=== PATIENT | female | born 1985 | race Caucasian/White ===

== ENCOUNTER 2019-03-06 07:02 | Day surgery (SDC) | payer OTHER ==
[2019-02-25 10:40] LABS: HEMATOCRIT 32.2 % (36.0-47.0); HEMOGLOBIN 10.6 g/dL (12.0-15.5); MEAN CORPUSCULAR HEMOGLOBIN 25.8 pg (27.0-33.4); MEAN CORPUSCULAR HGB CONC 32.8 g/dL (32.0-36.0); MEAN CORPUSCULAR VOLUME 79 fl (80-97); PLATELET COUNT 271 10^3/uL (150-450); RED BLOOD COUNT 4.09 10^6/uL (3.72-5.28); WHITE BLOOD COUNT 14.5 10^3/uL (4.0-10.5)
[2019-02-25 10:46] LABS: APPEARANCE,URINE CLEAR; BILIRUBIN,URINE NEGATIVE (NEGATIVE); COLOR,URINE YELLOW; GLUCOSE, URINE NEGATIVE (NEGATIVE); KETONES,URINE NEGATIVE (NEGATIVE); LEUKOCYTE ESTERASE,URINE NEGATIVE (NEGATIVE); NITRITE,URINE NEGATIVE (NEGATIVE); PROTEIN,URINE NEGATIVE (NEGATIVE); URINE SPECIFIC GRAVITY 1.011; UROBILINOGEN,URINE NEGATIVE mg/dL (<2.0)
[2019-02-25 11:08] LABS: ALBUMIN 3.9 g/dL (3.5-5.0); ALKALINE PHOSPHATASE 67 U/L (38-126); ANION GAP 8 (5-19); ASPARTATE AMINO TRANSFERASE 29 U/L (14-36); BILIRUBIN,DIRECT 0.2 mg/dL (0.0-0.4); BILIRUBIN,TOTAL 0.5 mg/dL (0.2-1.3); BLOOD UREA NITROGEN 11 mg/dL (7-20); CALCIUM 9.1 mg/dL (8.4-10.2); CARBON DIOXIDE 29 mmol/L (22-30); CHLORIDE 102 mmol/L (98-107); GLUCOSE 98 mg/dL (75-110); POTASSIUM 3.7 mmol/L (3.6-5.0); TOTAL PROTEIN 6.9 g/dL (6.3-8.2)
[~2019-03-06 07:02] MED LIST: GENTAMICIN SULFATE 80 MG in DEXTROSE 5%-WATER 100 ML IV PRN; LACTATED RINGERS 1000 ML IV PRN; LIDOCAINE 0.5% INJ-PF (5 MG/ML) 50 ML SDV SUBCUT PRN
[2019-03-06] MEDS ORDERED: BUPIVACAINE HCL 0.25 % INJ/PF (2.5 MG/1 ML) 30 ML VIAL ONE ×2 (07:24→08:51)
[2019-03-06] MEDS ORDERED: ALBUTEROL SULFATE 0.083% NEB 2.5 MG/3 ML AMPUL NEB ONE (08:12)
[2019-03-06] MEDS ORDERED: ONDANSETRON HCL INJ/PF 4 MG/2 ML SDV ONE (08:40)
[2019-03-06] MEDS ORDERED: MIDAZOLAM 2 MG/2 ML INJ ONE ×2 (08:40→09:30)
[2019-03-06] MEDS ORDERED: FENTANYL CITRATE INJ/PF 100 MCG/2 ML AMPUL ONE ×2 (08:40→11:14)
[2019-03-06] MEDS ORDERED: MORPHINE SULFATE 10 MG/ML INJ ONE (08:40)
[2019-03-06] MEDS ORDERED: DEXAMETHASONE SOD PHOSPHATE INJ 4 MG/1 ML VIAL ONE ×2 (08:40→09:30)
[2019-03-06] MEDS ORDERED: PROPOFOL INJ 200 MG/20 ML VIAL IV ONE (08:41)
[2019-03-06] MEDS ORDERED: METHYLENE BLUE 50 MG/10 ML AMPULE ONE (08:51)
[2019-03-06] MEDS ORDERED: SCOPOLAMINE HYDROBROMIDE 1.5 MG PATCH.TD72 ONE (09:30)
[2019-03-06] MEDS ORDERED: DIPHENHYDRAMINE HCL 50 MG/ML VIAL ONE (09:30)
[2019-03-06] MEDS ORDERED: FAMOTIDINE INJ/PF 20 MG/2 ML SDV IV ONE (09:30)
[2019-03-06] MEDS ORDERED: METOCLOPRAMIDE HCL INJ/PF 10 MG/2 ML SDV ONE (09:30)
[2019-03-06] MEDS ORDERED: ACETAMINOPHEN 1,000 MG/100 ML RTUPB IV ONE (10:13)
[2019-03-06] MEDS ORDERED: MORPHINE SULFATE 10 MG/ML INJ IV PRN (10:28)
[2019-03-06] MEDS ORDERED: MEPERIDINE HCL/PF INJ 25 MG/1 ML DISP.SYRIN IV PRN (10:28)
[2019-03-06] MEDS ORDERED: FENTANYL CITRATE INJ/PF 100 MCG/2 ML AMPUL IV PRN ×3 (10:28)
[2019-03-06] MEDS ORDERED: DIPHENHYDRAMINE HCL 50 MG/ML VIAL IV PRN (10:28)
[2019-03-06] MEDS ORDERED: PROMETHAZINE HCL INJ 25 MG/1 ML VIAL IV PRN ×3 (10:28→11:31)
[2019-03-06] MEDS ORDERED: OXYCODONE-ACETAMINOPHEN 5-325 MG TABLET PO PRN ×2 (11:30)
[2019-03-06] MEDS ORDERED: OXYCODONE-ACETAMINOPHEN 5-325 MG TABLET ONE (12:01)
[2019-03-06] MEDS ORDERED: SUCCINYLCHOLINE CHLORIDE INJ 200 MG/10 ML VIAL ONE (12:32)
[2019-03-06 13:37] VITALS: BP 111/78
--- NOTE | 2019-03-06 15:39 | Operative Report ---
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 Patient was then inducted under general anesthesia. Patient was then repositioned in a dorsal lithotomy position. Following a timeout the patient had her bladder drained of sterile urine. A pelvic under anesthesia was then performed. A weighted speculum was then inserted into the vagina and the cervix was grasped on its anterior lip with a single-tooth tenaculum and an Allis clamp. Uterus was sounded to 8 cm. Uterus was dilated with Hegar dilators and then curetted with a small sharp curette. A tenaculum probe was then placed on the anterior lip of the cervix. Attention was then turned toward the abdominal wall. A varies needle was entered inserted through the umbilicus and carried through the various layers until the abdominal cavity was entered. A drop of saline was placed on the varies needle the abdomen was picked up and the saline easily egressed into the abdominal cavity. The varies needle was then hooked up to the CO2. Opening pressure was noted to be 3 cm of water. Approximately 3 L of CO2 were injected until a pressure of 15 cm of water was reached. Having established a pneumoperitoneum the varies needle was removed and a small incision was made infraumbilically. Through this incision a trocar and sleeve were inserted. The trocar was removed and a laparoscope was inserted through the sleeve. A second incision was then made suprapubically. Through this incision a trocar was inserted until the peritoneal cavity was entered. The trocar was then removed and through this sleeve a probe was inserted. The contents of the pelvis and abdominal cavity was then visualized and video recorded with the above findings. Having terminated the procedure the suprapubic sleeve was removed. There was no evidence of active bleeding. The laparoscope was removed. The CO2 was allowed to escape. The subumbilical sleeve was then removed. The defect in the subumbilical fascia were repaired with interrupted using 0 Dexon. The defects in the suprapubic fascia were repaired with 0 Dexon. The skin edges and the subumbilical incision were then closed with a subcuticular using 4-0 Prolene. The skin edges and the suprapubic incision were then closed using interrupted 4-0 Prolene. Attention was then turned down to the vagina and the tenaculum probe was removed. This terminated the procedure the patient was placed back in a supine position and anesthesia was discontinued. Patient was transferred to the recovery room in satisfactory condition.
== END 2019-03-06 13:05 | disposition home or self-care (01) ==
LOC: OROUT 07:02
PROVIDERS: ATTEND Obstetrics & Gynecology
DX: C54.1 Malignant neoplasm of endometrium (principal); R10.2 Pelvic and perineal pain; N93.8 Other specified abnormal uterine and vaginal bleeding; K66.0 Peritoneal adhesions (postprocedural) (postinfection); J45.909 Unspecified asthma, uncomplicated
CPT/HCPCS: 86900; 86901; 36415 ×2; 87205; 87070; 86850; 84703; 85027; 87075; 80053; 81001; 88162; 88342 ×2; 88341 ×2; 88305 ×2; 00790; J2250; J1100; J1200; J3010; J1580; J2765; J0330; J2405; J7060; J2704; S0028; J0131; 790; J2270; Q9968

== ENCOUNTER 2019-03-16 11:51 | Inpatient (IN) | payer OTHER ==
[2019-03-16] MEDS ORDERED: HYDROMORPHONE HCL INJ/PF 2 MG/ML AMPULE IV PRN (12:43)
[2019-03-16 12:59] LABS: HEMATOCRIT 31.9 % (36.0-47.0); HEMOGLOBIN 10.4 g/dL (12.0-15.5); MEAN CORPUSCULAR HEMOGLOBIN 25.2 pg (27.0-33.4); MEAN CORPUSCULAR HGB CONC 32.6 g/dL (32.0-36.0); MEAN CORPUSCULAR VOLUME 78 fl (80-97); PLATELET COUNT 417 10^3/uL (150-450); RED BLOOD COUNT 4.12 10^6/uL (3.72-5.28); RED CELL DISTRIBUTION WIDTH 16.9 % (11.5-14.0); WHITE BLOOD COUNT 11.6 10^3/uL (4.0-10.5)
[2019-03-16] MEDS: PROMETHAZINE HCL INJ 25 MG/1 ML VIAL IV PRN (13:15)
[2019-03-16] MEDS: RINGERS SOLUTION,LACTATED 1,000 ML IV PRN (13:16)
[2019-03-16 13:18] LABS: ALBUMIN 3.9 g/dL (3.5-5.0); ALKALINE PHOSPHATASE 78 U/L (38-126); ANION GAP 12 (5-19); ASPARTATE AMINO TRANSFERASE 24 U/L (14-36); BILIRUBIN,DIRECT 0.2 mg/dL (0.0-0.4); BILIRUBIN,TOTAL 0.5 mg/dL (0.2-1.3); BLOOD UREA NITROGEN 10 mg/dL (7-20); CALCIUM 9.6 mg/dL (8.4-10.2); CARBON DIOXIDE 25 mmol/L (22-30); CHLORIDE 101 mmol/L (98-107); GLUCOSE 116 mg/dL (75-110); POTASSIUM 4.1 mmol/L (3.6-5.0); TOTAL PROTEIN 7.4 g/dL (6.3-8.2)
[2019-03-16] MEDS ORDERED: SCOPOLAMINE HYDROBROMIDE 1.5 MG PATCH.TD72 TD SCH (13:30)
[2019-03-16] MEDS ORDERED: HYDROMORPHONE HCL INJ/PF 2 MG/ML AMPULE IV ONE (14:30)
[2019-03-16 15:09] LABS: APPEARANCE,URINE CLEAR; BILIRUBIN,URINE NEGATIVE (NEGATIVE); COLOR,URINE STRAW; GLUCOSE, URINE NEGATIVE (NEGATIVE); KETONES,URINE NEGATIVE (NEGATIVE); LEUKOCYTE ESTERASE,URINE LARGE (NEGATIVE); NITRITE,URINE NEGATIVE (NEGATIVE); PROTEIN,URINE NEGATIVE (NEGATIVE); URINE SPECIFIC GRAVITY 1.005; UROBILINOGEN,URINE NEGATIVE mg/dL (<2.0)
[2019-03-16] MEDS: ALPRAZOLAM 0.5 MG TABLET PO PRN (16:33)
[2019-03-16] MEDS ORDERED: POLYETHYLENE GLYCOL 3350 POWDER 17 GM/1 PACKET PO ONE (17:30)
[2019-03-16] MEDS ORDERED: BISACODYL 5 MG TABEC PO ONE (17:32)
[2019-03-16] MEDS: CLONIDINE HCL 0.1 MG TABLET PO SCH ×2 (18:36→22:19)
--- NOTE | 2019-03-16 18:43 | RADIOLOGY REPORT (SQ) ---
EXAM DESCRIPTION: CT ABD/PELVIS WITH IV ORAL; CT CHEST WITH COMPLETED DATE/TIME: 03/16/2019 5:27 pm REASON FOR STUDY: PELVIC/ABDOMINAL PAIN COMPARISON: None. CONTRAST TYPE AND DOSE: contrast/concentration: Isovue 350.00 mg/ml; Total Contrast Delivered: 69.0 ml; Total Saline Delivered: 16.6 ml RENAL FUNCTION: None required. The patient is less than 50 years old. TECHNIQUE: CT scan of the chest performed using helical scanning technique with dynamic intravenous contrast injection. Images reviewed with lung, soft tissue and bone windows. Reconstructed coronal a nd sagittal MPR images reviewed. All images stored on PACS. CT scan of the abdomen and pelvis performed with intravenous and with oral contrastusing helical scan jasmyne technique with dynamic intravenous contrast injection. Images reviewed with lung, soft tissue a nd bone windows. Reconstructed coronal and sagittal MPR images reviewed. Delayed images for evaluat ion of the urinary system also acquired and evaluated. All images stored on PACS. All CT scanners at this facility use dose modulation, iterative reconstruction, and/or weight based d osing when appropriate to reduce radiation dose to as low as reasonably achievable (ALARA). [facility]: Dose Right [facility]: CareDose [facility]: Dose Right [facility]: Teradose 4D [facility]: Smart Spiration RADIATION DOSE: CT Rad equipment meets quality standard of care and radiation dose reduction techniq ues were employed. CTDIvol: 5.7 - 7.7 mGy. DLP: 873 mGy-cm. . LIMITATIONS: None. FINDINGS: CHEST: LUNGS AND PLEURA: No opacities, nodules, masses. No pneumothorax. No effusions. HILAR AND MEDIASTINAL STRUCTURES: No identified masses or abnormal nodes. HEART AND VASCULAR STRUCTURES: No aneurysm or dissection. No central pulmonary emboli. No pericardi al effusion. HARDWARE: None. THYROID AND OTHER SOFT TISSUES: No masses. No adenopathy. BONES: No significant finding. OTHER: No other significant finding. ABDOMEN AND PELVIS: LIVER: Normal size. No masses. No dilated ducts. SPLEEN: Normal size. No focal lesions. PANCREAS: No masses. No significant calcifications. No adjacent inflammation or peripancreatic fluid collections. Pancreatic duct not dilated. GALLBLADDER: No identified stones by CT criteria. No inflammatory changes to suggest cholecystitis. ADRENAL GLANDS: No significant masses or asymmetry. RIGHT KIDNEY AND URETER: No solid masses. No significant calcification. No hydronephrosis or hydroure ter. LEFT KIDNEY AND URETER: No solid masses. Small peripheral nonobstructive calcification. No hydroneph rosis or hydroureter. AORTA AND VESSELS: No aneurysm. No dissection. Renal arteries, SMA, celiac without stenosis. RETROPERITONEUM: No retroperitoneal adenopathy, hemorrhage or masses. BOWEL AND PERITONEAL CAVITY: No masses or inflammatory changes. No free fluid or peritoneal masses. APPENDIX: Not visualized. ABDOMINAL WALL: No masses. No hernias. PELVIS: No mass or free fluid. Normal bladder. BONES: No significant or acute findings. OTHER: No other significant finding. IMPRESSION: NORMAL CT OF THE CHEST WITH IV CONTRAST. NORMAL CT OF THE ABDOMEN AND PELVIS WITH ORAL AND INTRAVENOUS CONTRAST. TECHNICAL DOCUMENTATION: JOB ID: [id number] Quality ID # [id number]: Final reports with documentation of one or more dose reduction techniques (e.g., Au tomated exposure control, adjustment of the mA and/or kV according to patient size, use of iterative reconstruction technique) 2010 [employer]- All Rights Reserved Reading location - IP/workstation name: [email or web address]
[2019-03-16] MEDS: HYDROMORPHONE HCL 2 MG TABLET PO PRN (19:28)
[2019-03-16] MEDS: HYDROMORPHONE HCL INJ/PF 2 MG/ML AMPULE IV PRN (22:11)
[2019-03-16] MEDS: ZOLPIDEM TARTRATE 5 MG TABLET PO PRN (22:12)
[2019-03-17] MEDS: HYDROMORPHONE HCL 2 MG TABLET PO PRN ×2 (01:49→06:09)
[2019-03-17] MEDS: RINGERS SOLUTION,LACTATED 1,000 ML IV PRN ×2 (01:51→12:57)
[2019-03-17] MEDS: ALPRAZOLAM 0.5 MG TABLET PO PRN ×3 (01:55→21:40)
[2019-03-17] MEDS: CLONIDINE HCL 0.1 MG TABLET PO SCH ×6 (02:01→21:41)
[2019-03-17] MEDS: HYDROMORPHONE HCL INJ/PF 2 MG/ML AMPULE IV PRN ×6 (04:46→23:30)
[2019-03-17] MEDS ORDERED: GLUCAGON,HUMAN RECOMB 1 MG INJ SUBCUT PRN (08:22)
[2019-03-17] MEDS ORDERED: DEXTROSE 50%-WATER 25 GM/50 ML DISP.SYRIN IV PRN ×2 (08:22)
[2019-03-17] MEDS ORDERED: DEXTROSE 40% GEL 15 GM TUBE PO PRN ×2 (08:22)
--- NOTE | 2019-03-17 08:22 | PDOC CONSULTATION ---
Consultation Consult Date: 03/17/19 Provider Consulted: JUAN SHELTON Consult reason:: rectal bleeding, possible rectal mass History of Present Illness Admission Date/PCP: 03/16/19 11:51 GO DENTON MD Patient complains of: Rectal bleeding, rectal pain, tenesmus History of Present Illness: ABRAHAM BUSTOS is a 34 year old female with a several week history of severe pelvic/rectal pain. Patient reports a sensation of tenesmus. She was seen by me several months ago for an anal fissure. This was successfully treated, and the patient declined colonoscopy at that time. Now the patient presents with continued pelvic pain and tenesmus. Her bowel movements are small and mostly liquid. The patient underwent D&C with biopsy, showing possible adenocarcinoma. I have been consulted to provide the patient with a colonoscopy. Her pain is 10 out of 10, throbbing, and constant. Currently, she denies chest pain, shortness of breath, fevers, chills, dizziness, orthostasis, fatigue, malaise, blurry vision, headache. Past Medical History Cardiac Medical History: Denies: Coronary Artery Disease, Myocardial Infarction, Hypertension Pulmonary Medical History: Reports: Asthma - MILD Denies: Bronchitis, Chronic Obstructive Pulmonary Disease (COPD), Pneumonia Neurological Medical History: Reports: Migraine Denies: Seizures Musculoskeltal Medical History: Denies: Arthritis Psychiatric Medical History: Reports: Depression Hematology: Reports: Anemia Social History Smoking Status: Former Smoker Number of Years Smokin Frequency of Alcohol Use: None Hx Recreational Drug Use: No Drugs: None Hx Prescription Drug Abuse: No Family History Family History: Reviewed & Not Pertinent Parental Family History Reviewed: Yes Children Family History Reviewed: Yes Sibling(s) Family History Reviewed.: Yes Medication/Allergy Home Medications: Alprazolam [Xanax 0.5 mg Tablet] 0.25 mg PO BIDP PRN 03/16/19 Hydromorphone HCl [Dilaudid] 4 mg PO Q4HP PRN 03/16/19 Oxycodone HCl/Acetaminophen [Percocet 5-325 mg Tablet] 1 tab PO Q4HP PRN 03/16/19 Scopolamine 1 each TD Q72H 03/16/19 Zolpidem Tartrate [Ambien] 10 mg PO QHS 03/16/19 Allergies/Adverse Reactions: cefaclor [From [facility]] Allergy (Verified 03/06/19 08:23) Review of Systems Constitutional: ABSENT: anorexia, chills, fatigue, fever(s), headache(s) Eyes: ABSENT: visual disturbances Ears: ABSENT: hearing changes Nose, Mouth, and Throat: ABSENT: sore throat Cardiovascular: ABSENT: chest pain Respiratory: ABSENT: cough, dyspnea Gastrointestinal: PRESENT: bloating, other - Pelvic pain and tenesmus Genitourinary: ABSENT: dysuria Musculoskeletal: PRESENT: back pain Integumentary: ABSENT: pruritus, rash Neurological: ABSENT: confusion, convulsions, dizziness, weakness Psychiatric: ABSENT: anxiety, depression Endocrine: ABSENT: cold intolerance, heat intolerance Hematologic/Lymphatic: ABSENT: easy bleeding, easy bruising Physical Exam Vital Signs: Temp Pulse Resp BP Pulse Ox 97.2 F 71 17 123/69 100 03/16/19 16:42 03/16/19 16:42 03/16/19 16:42 03/16/19 16:42 03/16/19 16:42 Intake & Output 03/15/19 03/16/19 03/17/19 06:59 06:59 06:59 Weight 60.4 kg General appearance: PRESENT: cooperative. ABSENT: disheveled Head exam: PRESENT: atraumatic, normocephalic Eye exam: PRESENT: EOMI, PERRLA. ABSENT: scleral icterus Mouth exam: PRESENT: moist, neck supple Teeth exam: ABSENT: poor dentation Neck exam: ABSENT: meningismus, tenderness, thyromegaly, tracheal deviation Respiratory exam: PRESENT: clear to auscultation eva, unlabored. ABSENT: chest wall tenderness, tachypnea, wheezes Cardiovascular exam: PRESENT: RRR Pulses: PRESENT: normal radial pulses Vascular exam: PRESENT: normal capillary refill. ABSENT: pallor GI/Abdominal exam: PRESENT: soft. ABSENT: distended, firm, tenderness Rectal exam: PRESENT: deferred - due to pain Extremities exam: ABSENT: clubbing Musculoskeletal exam: ABSENT: deformity Neurological exam: PRESENT: alert, awake, CN II-XII grossly intact. ABSENT: motor sensory deficit Psychiatric exam: PRESENT: anxious. ABSENT: agitated Focused psych exam: ABSENT: delusional Skin exam: ABSENT: cyanosis, erythema, jaundice Results Laboratory Results: 03/16/19 12:30 03/16/19 12:30 03/16/19 03/16/19 03/16/19 12:30 12:30 14:30 WBC 11.6 H RBC 4.12 Hgb 10.4 L Hct 31.9 L MCV 78 L MCH 25.2 L MCHC 32.6 RDW 16.9 H Plt Count 417 Sodium 137.7 Potassium 4.1 Chloride 101 Carbon Dioxide 25 Anion Gap 12 BUN 10 Creatinine 0.63 Est GFR ( Amer) > 60 Glucose 116 H Calcium 9.6 Total Bilirubin 0.5 AST 24 Alkaline Phosphatase 78 Total Protein 7.4 Albumin 3.9 Urine Color STRAW Urine Appearance CLEAR Urine pH 7.0 Ur Specific [place] 1.005 Urine Protein NEGATIVE Urine Glucose (UA) NEGATIVE Urine Ketones NEGATIVE Urine Blood MODERATE H Urine Nitrite NEGATIVE Ur Leukocyte Esterase LARGE H Urine WBC (Auto) 113 Urine RBC (Auto) 1 Impressions: Abdomen/Pelvis CT 03/16/19 00:00 IMPRESSION: NORMAL CT OF THE CHEST WITH IV CONTRAST. NORMAL CT OF THE ABDOMEN AND PELVIS WITH ORAL AND INTRAVENOUS CONTRAST. Chest CT 03/16/19 00:00 IMPRESSION: NORMAL CT OF THE CHEST WITH IV CONTRAST. NORMAL CT OF THE ABDOMEN AND PELVIS WITH ORAL AND INTRAVENOUS CONTRAST. Assessment & Plan - Diagnosis (1) Rectal bleeding Is this a current diagnosis for this admission?: Yes (2) Rectal pain Is this a current diagnosis for this admission?: Yes - Plan Summary Plan Summary: This is a 34-year-old female with rectal bleeding, and a vaginal biopsy consistent with adenocarcinoma. The patient will require a colonoscopy to rule out a rectal tumor. I discussed this with the patient and her family at length. They are in agreement with the treatment plan. Risks/benefits discussed, informed consent obtained, and all questions answered.
[2019-03-17 09:56] LABS: HEMOGLOBIN 9.4 g/dL (12.0-15.5); MEAN CORPUSCULAR HEMOGLOBIN 25.2 pg (27.0-33.4); MEAN CORPUSCULAR HGB CONC 32.4 g/dL (32.0-36.0); MEAN CORPUSCULAR VOLUME 78 fl (80-97); PLATELET COUNT 323 10^3/uL (150-450); RED BLOOD COUNT 3.73 10^6/uL (3.72-5.28); RED CELL DISTRIBUTION WIDTH 16.7 % (11.5-14.0); WHITE BLOOD COUNT 12.3 10^3/uL (4.0-10.5)
[2019-03-17] MEDS: ACETAMINOPHEN 325 MG TABLET PO PRN ×2 (10:02→21:40)
[2019-03-17] MEDS: HYDROMORPHONE HCL 2 MG TABLET PO SCH ×4 (10:04→21:40)
[2019-03-17] MEDS: PROMETHAZINE HCL INJ 25 MG/1 ML VIAL IV PRN (10:07)
--- NOTE | 2019-03-17 10:28 | PDOC PROGRESS REPORT ---
Subjective Progress Note for:: 03/17/19 Subjective:: 34-year-old female with complaints of rectal bleeding and tenesmus. She is due for a colonoscopy today. She has been drinking her bowel prep, without significant results. Patient reports several loose watery bowel movements, without significant stool present. She reports reflux, intermittent nausea. She denies headache, vomiting, chest pain, fevers, chills, blurry vision, orthostasis, fatigue. She does report vaginal as well as rectal bleeding. Reason For Visit: S/P LAPAROSCOPY/PELVIC ABDOMINAL PAIN Physical Exam Vital Signs: Temp Pulse Resp BP Pulse Ox 98.1 F 100 14 143/87 H 100 03/17/19 07:56 03/17/19 07:56 03/17/19 07:56 03/17/19 07:56 03/17/19 07:56 Intake & Output 03/16/19 03/17/19 03/18/19 06:59 06:59 06:59 Intake Total 1800 Balance 1800 Weight 60.4 kg General appearance: PRESENT: cooperative. ABSENT: disheveled Head exam: PRESENT: atraumatic, normocephalic Eye exam: PRESENT: EOMI, PERRLA. ABSENT: scleral icterus Mouth exam: PRESENT: moist, neck supple Teeth exam: ABSENT: poor dentation Neck exam: ABSENT: meningismus, tenderness, thyromegaly, tracheal deviation Respiratory exam: PRESENT: clear to auscultation eva, unlabored. ABSENT: accessory muscle use, chest wall tenderness, tachypnea, wheezes Cardiovascular exam: PRESENT: RRR Pulses: PRESENT: normal radial pulses Vascular exam: PRESENT: normal capillary refill GI/Abdominal exam: PRESENT: distended - mild, soft. ABSENT: rigid, tenderness Rectal exam: PRESENT: deferred - due to pain Extremities exam: ABSENT: clubbing Musculoskeletal exam: ABSENT: deformity Neurological exam: PRESENT: alert, awake, oriented to person, oriented to place, oriented to time, oriented to situation, CN II-XII grossly intact. ABSENT: motor sensory deficit Psychiatric exam: PRESENT: anxious. ABSENT: agitated Focused psych exam: ABSENT: delusional Skin exam: ABSENT: cyanosis, erythema, jaundice Results Laboratory Results: 03/17/19 09:09 03/16/19 12:30 03/16/19 03/16/19 03/16/19 12:30 12:30 14:30 WBC 11.6 H RBC 4.12 Hgb 10.4 L Hct 31.9 L MCV 78 L MCH 25.2 L MCHC 32.6 RDW 16.9 H Plt Count 417 Sodium 137.7 Potassium 4.1 Chloride 101 Carbon Dioxide 25 Anion Gap 12 BUN 10 Creatinine 0.63 Est GFR ( Amer) > 60 Glucose 116 H Calcium 9.6 Total Bilirubin 0.5 AST 24 Alkaline Phosphatase 78 Total Protein 7.4 Albumin 3.9 Urine Color STRAW Urine Appearance CLEAR Urine pH 7.0 Ur Specific [place] 1.005 Urine Protein NEGATIVE Urine Glucose (UA) NEGATIVE Urine Ketones NEGATIVE Urine Blood MODERATE H Urine Nitrite NEGATIVE Ur Leukocyte Esterase LARGE H Urine WBC (Auto) 113 Urine RBC (Auto) 1 03/17/19 09:09 WBC 12.3 H RBC 3.73 Hgb 9.4 L Hct 29.0 L MCV 78 L MCH 25.2 L MCHC 32.4 RDW 16.7 H Plt Count 323 Sodium Potassium Chloride Carbon Dioxide Anion Gap BUN Creatinine Est GFR ( Amer) Glucose Calcium Total Bilirubin AST Alkaline Phosphatase Total Protein Albumin Urine Color Urine Appearance Urine pH Ur Specific [place] Urine Protein Urine Glucose (UA) Urine Ketones Urine Blood Urine Nitrite Ur Leukocyte Esterase Urine WBC (Auto) Urine RBC (Auto) 03/16/19 14:30 Clean Catch Midstream Urine Culture - Final 1,000 col/ml Impressions: Abdomen/Pelvis CT 03/16/19 00:00 IMPRESSION: NORMAL CT OF THE CHEST WITH IV CONTRAST. NORMAL CT OF THE ABDOMEN AND PELVIS WITH ORAL AND INTRAVENOUS CONTRAST. Chest CT 03/16/19 00:00 IMPRESSION: NORMAL CT OF THE CHEST WITH IV CONTRAST. NORMAL CT OF THE ABDOMEN AND PELVIS WITH ORAL AND INTRAVENOUS CONTRAST. Assessment & Plan - Diagnosis (1) Rectal bleeding Is this a current diagnosis for this admission?: Yes (2) Rectal pain Is this a current diagnosis for this admission?: Yes - Plan Summary Plan Summary: This is a 34-year-old female with rectal bleeding and tenesmus. She has a vaginal biopsy consistent with adenocarcinoma. Plan for colonoscopy today to rule out any rectal pathology. The patient has been drinking her bowel prep. Hopefully we will see some results from this in the near future. Plan colonoscopy today regardless of bowel prep results. The family was present at bedside. All questions were answered.
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
[2019-03-17 14:21] LABS: IRON(TIBC) 10.4 ug/dL (37-170)
[2019-03-17 14:23] LABS: ABSOLUTE RETICS # 0.058 10^6/uL (0.028-0.122); RETICULOCYTE COUNT (AUTO) 1.55 % (0.66-2.85)
[2019-03-17 14:54] LABS: CARCINOEMBRYONIC ANTIGEN 20.3 ng/mL (<3.0)
[2019-03-17] MEDS ORDERED: PROPOFOL INJ 200 MG/20 ML VIAL IV ONE (18:19)
[2019-03-17] MEDS ORDERED: MIDAZOLAM 2 MG/2 ML INJ ONE (18:19)
[2019-03-17] MEDS: FENTANYL CITRATE INJ/PF 100 MCG/2 ML AMPUL ONE ×2 (19:15→19:20)
[2019-03-17] MEDS: ZOLPIDEM TARTRATE 5 MG TABLET PO PRN (23:29)
[2019-03-18] MEDS: CLONIDINE HCL 0.1 MG TABLET PO SCH ×6 (03:25→21:13)
[2019-03-18] MEDS: HYDROMORPHONE HCL 2 MG TABLET PO SCH ×3 (03:25→21:13)
[2019-03-18] MEDS: RINGERS SOLUTION,LACTATED 1,000 ML IV PRN (04:47)
[2019-03-18] MEDS: HYDROMORPHONE HCL INJ/PF 2 MG/ML AMPULE IV PRN ×3 (04:48→18:29)
[2019-03-18] MEDS: ALPRAZOLAM 0.5 MG TABLET PO PRN (08:13)
--- NOTE | 2019-03-18 08:36 | PDOC PROGRESS REPORT ---
Subjective Progress Note for:: 03/18/19 Subjective:: discussed case with Dr. Siegel extensively, patient has tumor extending up from the dentate line about 6 to 8 cm. There is invasion of the vagina. Discussed case also with radiation oncology who will be seeing her this afternoon. Suggested MRI of the pelvis to better characterize the invasion. And also prepare for concurrent chemoradiation. Asked Dr. Siegel to place port. Also discussed case with Dr. Herrera of pain management, he is trying to quantify total pain needs and then initiate an appropriate dose of long-acting pain medication which will be done today. Today spent 45 minutes in discussion and coordination of care. Reason For Visit: S/P LAPAROSCOPY,PELVIC ABDOMINAL PAIN Physical Exam Vital Signs: Temp Pulse Resp BP Pulse Ox 100.3 F 97 16 102/53 L 96 03/17/19 22:30 03/17/19 22:30 03/17/19 22:30 03/17/19 22:30 03/17/19 22:30 Intake & Output 03/17/19 03/18/19 03/19/19 06:59 06:59 06:59 Intake Total 1800 3630 Balance 1800 3630 Weight 60.4 kg 57 kg General appearance: PRESENT: no acute distress, well-developed, well-nourished Head exam: PRESENT: atraumatic, normocephalic Eye exam: PRESENT: conjunctiva pink, EOMI, PERRLA. ABSENT: scleral icterus Ear exam: PRESENT: normal external ear exam Mouth exam: PRESENT: moist, tongue midline Neck exam: ABSENT: carotid bruit, JVD, lymphadenopathy, thyromegaly Respiratory exam: PRESENT: clear to auscultation eva. ABSENT: rales, rhonchi, wheezes Cardiovascular exam: PRESENT: RRR. ABSENT: diastolic murmur, rubs, systolic murmur Pulses: PRESENT: normal dorsalis pedis pul Vascular exam: PRESENT: normal capillary refill GI/Abdominal exam: PRESENT: normal bowel sounds, soft. ABSENT: distended, guarding, mass, organolmegaly, rebound, tenderness Rectal exam: PRESENT: deferred Extremities exam: PRESENT: full ROM. ABSENT: calf tenderness, clubbing, pedal edema Neurological exam: PRESENT: alert, awake, oriented to person, oriented to place, oriented to time, oriented to situation, CN II-XII grossly intact. ABSENT: motor sensory deficit Psychiatric exam: PRESENT: appropriate affect, normal mood. ABSENT: homicidal ideation, suicidal ideation Skin exam: PRESENT: dry, intact, warm. ABSENT: cyanosis, rash Results Laboratory Results: 03/17/19 09:09 03/16/19 12:30 03/17/19 03/17/19 03/17/19 09:09 09:09 09:09 WBC 12.3 H RBC 3.73 Hgb 9.4 L Hct 29.0 L MCV 78 L MCH 25.2 L MCHC 32.4 RDW 16.7 H Plt Count 323 Retic Count (auto) 1.55 Iron 10.4 L TIBC 300 % Saturation 3 Ferritin 45.40 Vitamin B12 232.0 L Folate 11.80 03/16/19 14:30 Clean Catch Midstream Urine Culture - Final 1,000 col/ml Impressions: Abdomen/Pelvis CT 03/16/19 00:00 IMPRESSION: NORMAL CT OF THE CHEST WITH IV CONTRAST. NORMAL CT OF THE ABDOMEN AND PELVIS WITH ORAL AND INTRAVENOUS CONTRAST. Chest CT 03/16/19 00:00 IMPRESSION: NORMAL CT OF THE CHEST WITH IV CONTRAST. NORMAL CT OF THE ABDOMEN AND PELVIS WITH ORAL AND INTRAVENOUS CONTRAST. Status: Image reviewed by me Assessment & Plan - Diagnosis (1) Rectal cancer Is this a current diagnosis for this admission?: Yes Plan: Patient with what appears to at least be a T4 lesion, CT of the chest and pelvis does not show distant disease, MRI of the pelvis planned for better characterization of the tumor, lymph node status. Radiation oncology evaluation planned. Port placement needed. Discussed with patient that she will require either neoadjuvant chemotherapy for a few cycles then concurrent chemoradiation or concurrent chemoradiation upfront. We will decide after we get the MRI as well as discussion with radiation oncology. (2) Rectal pain Is this a current diagnosis for this admission?: Yes Plan: Rectal pain secondary to the rectal cancer, discussed with Dr. Shirley who should be starting long-acting pain medication today (3) Anemia Qualifiers: Anemia type: iron deficiency Iron deficiency anemia type: chronic blood loss Qualified Code(s): D50.0 - Iron deficiency anemia secondary to blood loss (chronic) Is this a current diagnosis for this admission?: Yes Plan: Both iron and B12 deficiency anemia, plan to give IV iron today as well as B12 supplementation with shots. If hemoglobin drops below 7 plan transfusion but I doubt that will happen. - Time Time Spent with patient: 35 or more minutes
[2019-03-18] MEDS: CYANOCOBALAMIN (VITAMIN B-12) INJ 1000 MCG/1 ML VIAL IM SCH (09:14)
[2019-03-18] MEDS ORDERED: FERUMOXYTOL (NON-ESRD) 510 MG/NS 100 ML IV ONE ×2 (10:00)
[2019-03-18 10:31] LABS: HEMATOCRIT 26.9 % (36.0-47.0); HEMOGLOBIN 8.8 g/dL (12.0-15.5); MEAN CORPUSCULAR HEMOGLOBIN 25.5 pg (27.0-33.4); MEAN CORPUSCULAR HGB CONC 32.6 g/dL (32.0-36.0); MEAN CORPUSCULAR VOLUME 78 fl (80-97); PLATELET COUNT 271 10^3/uL (150-450); RED BLOOD COUNT 3.44 10^6/uL (3.72-5.28); RED CELL DISTRIBUTION WIDTH 17.2 % (11.5-14.0); WHITE BLOOD COUNT 11.4 10^3/uL (4.0-10.5)
[2019-03-18] MEDS: MORPHINE SULFATE SR 30 MG TABLET PO SCH ×2 (11:01→17:49)
[2019-03-18] MEDS: SCOPOLAMINE HYDROBROMIDE 1.5 MG PATCH.TD72 TD SCH (11:02)
[2019-03-18] MEDS: DOCUSATE SODIUM 100 MG CAPSULE PO SCH ×2 (11:02→17:49)
--- NOTE | 2019-03-18 11:50 | Operative Report ---
Nonrecallable Operative Report DATE OF SURGERY: 03/17/19 PREOPERATIVE DIAGNOSIS: Rectal bleeding, possible rectal mass. POSTOPERATIVE DIAGNOSIS: Rectal mass, consistent with rectal cancer extending from the dentate line to approximately 8 cm proximally. The mass occupies approximately 75% of the wall of the rectum, primarily positioned in the left anterolateral position. No significant luminal narrowing was identified. OPERATION: 1. Flexible sigmoidoscopy. 2. Manual disimpaction. 3. Cold biopsy of rectal mass. SURGEON: JUAN SHELTON ANESTHESIA: LMAC TISSUE REMOVED OR ALTERED: Multiple rectal biopsies COMPLICATIONS: Unable to proceed farther than approximately 10 to 12 cm due to large amount of stool remaining in the colon. ESTIMATED BLOOD LOSS: Minimal PROCEDURE: Procedure in detail: After informed consent was obtained, the patient was laid in the left lateral decubitus position in the operating room. After adequate anesthesia was obtained, a digital rectal exam was performed. This noted a large amount of hard, sticky stool within the rectal vault. This was manually disimpacted. Next, the flexible sigmoidoscope was inserted into the rectum and passed up to approximately 12 cm. A 12 cm, a large amount of stool prohibited further examination. The scope was pulled back. At approximately 8 cm from the dentate line a large, flat ulcerated masslike lesion was found in the left anterolateral rectum. This mass extended from 8 cm proximal, to the dentate line. It occupied approximately 75% of the wall of the rectum, with approximately 25% appearing normal in the posterior area. Multiple biopsies were taken along the length of the mass. The scope was then removed, and the procedure was concluded. All sponge, instrument, and needle counts were correct x2. Condition: Fair.
[2019-03-18] MEDS: ACETAMINOPHEN 325 MG TABLET PO PRN (11:51)
--- NOTE | 2019-03-18 12:01 | PDOC PROGRESS REPORT ---
Subjective Progress Note for:: 03/18/19 Subjective:: 34-year-old female with complaints of rectal bleeding and tenesmus. She underwent colonoscopy yesterday, revealing a rectal mass. The patient had several loose watery bowel movements overnight. She continues to complain of pelvic pain. She denies headache, vomiting, chest pain, fevers, chills, blurry vision, orthostasis, fatigue. She also continues to report vaginal as well as rectal bleeding. Reason For Visit: S/P LAPAROSCOPY,PELVIC ABDOMINAL PAIN Physical Exam Vital Signs: Temp Pulse Resp BP Pulse Ox 100.7 F H 104 H 21 H 112/64 100 03/18/19 08:04 03/18/19 08:04 03/18/19 08:04 03/18/19 08:04 03/18/19 08:04 Intake & Output 03/17/19 03/18/19 03/19/19 06:59 06:59 06:59 Intake Total 1800 3630 100 Balance 1800 3630 100 Weight 60.4 kg 57 kg General appearance: PRESENT: no acute distress, cooperative Head exam: PRESENT: atraumatic, normocephalic Eye exam: PRESENT: EOMI, PERRLA Mouth exam: PRESENT: neck supple Neck exam: ABSENT: meningismus, tenderness, thyromegaly, tracheal deviation Respiratory exam: PRESENT: unlabored. ABSENT: chest wall tenderness, retraction, tachypnea, wheezes Cardiovascular exam: PRESENT: RRR Pulses: PRESENT: normal radial pulses Vascular exam: PRESENT: normal capillary refill. ABSENT: pallor GI/Abdominal exam: PRESENT: distended - mild, soft. ABSENT: tenderness Rectal exam: PRESENT: deferred Extremities exam: ABSENT: clubbing Musculoskeletal exam: ABSENT: deformity Neurological exam: PRESENT: altered, awake Psychiatric exam: PRESENT: anxious. ABSENT: agitated Focused psych exam: ABSENT: delusional Skin exam: ABSENT: cyanosis, erythema, jaundice Results Laboratory Results: 03/18/19 10:22 03/16/19 12:30 03/17/19 03/17/19 03/18/19 09:09 09:09 10:22 WBC 11.4 H RBC 3.44 L Hgb 8.8 L Hct 26.9 L MCV 78 L MCH 25.5 L MCHC 32.6 RDW 17.2 H Plt Count 271 Retic Count (auto) 1.55 Iron 10.4 L TIBC 300 % Saturation 3 Ferritin 45.40 Vitamin B12 232.0 L Folate 11.80 03/16/19 14:30 Clean Catch Midstream Urine Culture - Final 1,000 col/ml Impressions: Abdomen/Pelvis CT 03/16/19 00:00 IMPRESSION: NORMAL CT OF THE CHEST WITH IV CONTRAST. NORMAL CT OF THE ABDOMEN AND PELVIS WITH ORAL AND INTRAVENOUS CONTRAST. Chest CT 03/16/19 00:00 IMPRESSION: NORMAL CT OF THE CHEST WITH IV CONTRAST. NORMAL CT OF THE ABDOMEN AND PELVIS WITH ORAL AND INTRAVENOUS CONTRAST. Assessment & Plan - Diagnosis (1) Rectal bleeding Is this a current diagnosis for this admission?: Yes (2) Rectal pain Is this a current diagnosis for this admission?: Yes - Plan Summary Plan Summary: This is a 34-year-old female status post colonoscopy, showing a rectal mass. I have discussed the case with Dr. Cordova. He is requesting a Mediport for chemotherapy. I have discussed this with the patient and her mother. They are in agreement with having this performed prior to discharge. I will plan to place the Mediport tomorrow. Radiation oncology will be seeing the patient later today. I will also discuss the case with him. Plan for rectal MRI today to assess the extent of disease. I have reviewed the patient's CT scan of the chest, abdomen, and pelvis. There is no evidence of metastatic spread at this time. Will follow. Biopsies pending.
[2019-03-18] MEDS ORDERED: HYDROMORPHONE HCL 2 MG TABLET PO SCH (14:00)
--- NOTE | 2019-03-18 14:09 | PDOC PROGRESS REPORT ---
Subjective Progress Note for:: 03/18/19 Subjective:: Called by Dr. Jesus Ayala who requested transfer of service to the hospitalist team. Case discussed, chart and course reviewed. This a 34-year-old female who initially presented with vaginal discharge and tenesmus. She subsequently underwent colonoscopy and was found to have a rectal tumor found to be malignant. Oncology has been following patient. No acute event overnight. Patient did have a fever this morning. She does complain of occasionally having difficulty urinating. She denies cough, chest pain or abdominal pain or chills. She is going for MediPort placement by surgery today for anticipated chemoradiation as recommended by oncology. Reason For Visit: S/P LAPAROSCOPY,PELVIC ABDOMINAL PAIN Physical Exam Vital Signs: Temp Pulse Resp BP Pulse Ox 100.7 F H 104 H 21 H 112/64 100 03/18/19 08:04 03/18/19 08:04 03/18/19 08:04 03/18/19 08:04 03/18/19 08:04 Intake & Output 03/17/19 03/18/19 03/19/19 06:59 06:59 06:59 Intake Total 1800 3630 100 Balance 1800 3630 100 Weight 133 lb 2.547 oz 125 lb 10.616 oz General appearance: PRESENT: no acute distress, well-developed, well-nourished Head exam: PRESENT: atraumatic, normocephalic Eye exam: PRESENT: conjunctiva pink, EOMI, PERRLA. ABSENT: scleral icterus Ear exam: PRESENT: normal external ear exam Mouth exam: PRESENT: moist, tongue midline Neck exam: ABSENT: carotid bruit, JVD, lymphadenopathy, thyromegaly Respiratory exam: PRESENT: clear to auscultation eva. ABSENT: rales, rhonchi, wheezes Cardiovascular exam: PRESENT: RRR. ABSENT: diastolic murmur, rubs, systolic murmur Pulses: PRESENT: normal dorsalis pedis pul GI/Abdominal exam: PRESENT: normal bowel sounds, soft. ABSENT: distended, guarding, mass, organolmegaly, rebound, tenderness Rectal exam: PRESENT: deferred Neurological exam: PRESENT: alert, awake, oriented to person, oriented to place, oriented to time, oriented to situation, CN II-XII grossly intact. ABSENT: motor sensory deficit Results Laboratory Results: 03/18/19 10:22 03/16/19 12:30 03/17/19 03/17/19 03/18/19 09:09 09:09 10:22 WBC 11.4 H RBC 3.44 L Hgb 8.8 L Hct 26.9 L MCV 78 L MCH 25.5 L MCHC 32.6 RDW 17.2 H Plt Count 271 Retic Count (auto) 1.55 Iron 10.4 L TIBC 300 % Saturation 3 Ferritin 45.40 Vitamin B12 232.0 L Folate 11.80 03/16/19 14:30 Clean Catch Midstream Urine Culture - Final 1,000 col/ml Impressions: Abdomen/Pelvis CT 03/16/19 00:00 IMPRESSION: NORMAL CT OF THE CHEST WITH IV CONTRAST. NORMAL CT OF THE ABDOMEN AND PELVIS WITH ORAL AND INTRAVENOUS CONTRAST. Chest CT 03/16/19 00:00 IMPRESSION: NORMAL CT OF THE CHEST WITH IV CONTRAST. NORMAL CT OF THE ABDOMEN AND PELVIS WITH ORAL AND INTRAVENOUS CONTRAST. Assessment and Plan - Diagnosis (1) Colorectal cancer Is this a current diagnosis for this admission?: Yes Plan: Waiting for Mediport placement by surgery today for anticipated chemoradiation by oncology. MRI ordered by oncology as part of metastatic work-up. (2) UTI (urinary tract infection) Qualifiers: Urinary tract infection type: acute cystitis Hematuria presence: without hematuria Qualified Code(s): N30.00 - Acute cystitis without hematuria Is this a current diagnosis for this admission?: Yes Plan: Patient had anaphylaxis to cefaclor in the past. We will start her on ciprofl oxacin. Will order urine culture and blood culture as well. (3) Vaginal discharge Is this a current diagnosis for this admission?: Yes Plan: She does complain light brownish vaginal discharge. Will order for a vaginal smear and culture. (4) Anemia Qualifiers: Anemia type: iron deficiency Iron deficiency anemia type: chronic blood loss Qualified Code(s): D50.0 - Iron deficiency anemia secondary to blood loss (chronic) Is this a current diagnosis for this admission?: Yes (5) PTSD (post-traumatic stress disorder) Is this a current diagnosis for this admission?: Yes - Time Time Spent with patient: 25-34 minutes
[2019-03-18] MEDS: CIPROFLOXACIN 400 MG/D5W RTU 400 MG/200 ML RTUPB IV SCH ×2 (14:50→21:14)
--- NOTE | 2019-03-18 16:58 | PDOC PROGRESS REPORT ---
Subjective Progress Note for:: 03/18/19 Subjective:: Patient not present for examination today given down for MRI and plans to see Radiation Oncology. Reason For Visit: ABD/PELVIC PAIN,RECTAL MASS Physical Exam Vital Signs: Temp Pulse Resp BP Pulse Ox 100.7 F H 104 H 21 H 112/64 100 03/18/19 08:04 03/18/19 08:04 03/18/19 08:04 03/18/19 08:04 03/18/19 08:04 Intake & Output 03/17/19 03/18/19 03/19/19 06:59 06:59 06:59 Intake Total 1800 3630 500 Balance 1800 3630 500 Weight 60.4 kg 57 kg Additional comments: Patient not present for PE today since down in MRI scanner Results Laboratory Results: 03/18/19 10:22 03/16/19 12:30 03/18/19 10:22 WBC 11.4 H RBC 3.44 L Hgb 8.8 L Hct 26.9 L MCV 78 L MCH 25.5 L MCHC 32.6 RDW 17.2 H Plt Count 271 Impressions: Abdomen/Pelvis CT 03/16/19 00:00 IMPRESSION: NORMAL CT OF THE CHEST WITH IV CONTRAST. NORMAL CT OF THE ABDOMEN AND PELVIS WITH ORAL AND INTRAVENOUS CONTRAST. Chest CT 03/16/19 00:00 IMPRESSION: NORMAL CT OF THE CHEST WITH IV CONTRAST. NORMAL CT OF THE ABDOMEN AND PELVIS WITH ORAL AND INTRAVENOUS CONTRAST. Assessment & Plan - Diagnosis (1) Rectal pain Is this a current diagnosis for this admission?: Yes Plan: As discussed with Oncology, will trial conversion to long acting MS Contin 30mg TID and continue oral hydromorphone for prn BTP. Will plan to reevaluate in morning and hopefully move away from IV Dilaudid to allow for transition to outpatient for radiation therapy. Would continue current regimen with close follow up in outpatient setting. Would continue clonidine with close monitoring of blood pressure while inpati ent. Would continue current bowel regimen and closely follow given current diagnosis.
[2019-03-18] MEDS ORDERED: MORPHINE SULFATE SR 30 MG TABLET PO SCH (18:00)
[2019-03-18] MEDS: LACTULOSE SYRUP 20 GM/30 ML UDCUP PO SCH (21:14)
[2019-03-18] MEDS: HEPARIN SOD (PORCINE) 5,000 UNIT/ML 1 ML VIAL SUBCUT SCH (21:20)
[2019-03-18] MEDS: ZOLPIDEM TARTRATE 5 MG TABLET PO PRN (21:59)
[2019-03-19] MEDS: HYDROMORPHONE HCL 2 MG TABLET PO SCH ×4 (00:29→07:22)
[2019-03-19] MEDS: MORPHINE SULFATE SR 30 MG TABLET PO SCH ×4 (02:30→23:25)
[2019-03-19] MEDS: CLONIDINE HCL 0.1 MG TABLET PO SCH ×4 (02:36→13:43)
[2019-03-19] MEDS: ACETAMINOPHEN 325 MG TABLET PO PRN ×2 (05:33→19:35)
[2019-03-19 05:45] LABS: ABSOLUTE EOSINOPHILS # (AUTO) 0.2 10^3/uL (0.0-0.6); ABSOLUTE LYMPHOCYTES (AUTO) 1.8 10^3/uL (0.5-4.7); ABSOLUTE MONOCYTES (AUTO) 1.2 10^3/uL (0.1-1.4); BASOPHILS % (AUTO) 0.1 % (0-2); EOSINOPHILS % (AUTO) 1.9 % (0-6); HEMATOCRIT 25.8 % (36.0-47.0); HEMOGLOBIN 8.5 g/dL (12.0-15.5); LYMPHOCYTES % (AUTO) 19.9 % (13-45); MEAN CORPUSCULAR HEMOGLOBIN 25.7 pg (27.0-33.4); MEAN CORPUSCULAR VOLUME 78 fl (80-97); MONOCYTES % (AUTO) 13.3 % (3-13); PLATELET COUNT 233 10^3/uL (150-450); RED BLOOD COUNT 3.32 10^6/uL (3.72-5.28); RED CELL DISTRIBUTION WIDTH 16.7 % (11.5-14.0); SEGMENTED NEUTROPHILS % (AUTO) 64.8 % (42-78); TOTAL CELLS COUNTED % (AUTO) 100 %; WHITE BLOOD COUNT 9.2 10^3/uL (4.0-10.5)
[2019-03-19 06:03] LABS: ANION GAP 6 (5-19); BLOOD UREA NITROGEN 6 mg/dL (7-20); CALCIUM 8.8 mg/dL (8.4-10.2); CARBON DIOXIDE 28 mmol/L (22-30); CHLORIDE 100 mmol/L (98-107); GLUCOSE 114 mg/dL (75-110); POTASSIUM 3.8 mmol/L (3.6-5.0)
[2019-03-19] MEDS ORDERED: LIDOCAINE 1% INJ-PF (10 MG/ML) 30 ML SDV ONE (07:28)
[2019-03-19 07:54] LABS: CHLAM PCR NOT DETECTED (NOT DETECT)
[2019-03-19] MEDS: HYDROMORPHONE HCL INJ/PF 2 MG/ML AMPULE IV PRN (08:06)
--- NOTE | 2019-03-19 08:15 | PDOC PROGRESS REPORT ---
Subjective Progress Note for:: 03/19/19 Subjective:: Patient seen this morning. She notes mild improvement and is anxious to get home. She continues to note intermittent deep stabbing cramping in her abdomen. She note relief with the BTP medication lasting about 3 hours and taking about 30 minutes to kick in. She notes sedation but relates this to her disrupted sleep pattern while in the hospital. She notes that she has planned PORT placement today. Reason For Visit: ABD/PELVIC PAIN,RECTAL MASS Physical Exam Vital Signs: Temp Pulse Resp BP Pulse Ox 100.3 F 87 17 99/54 L 94 03/18/19 23:51 03/18/19 23:51 03/18/19 23:51 03/18/19 23:51 03/18/19 23:51 Intake & Output 03/18/19 03/19/19 03/20/19 06:59 06:59 06:59 Intake Total 3630 1900 Balance 3630 1900 Weight 57 kg 59.2 kg General appearance: PRESENT: no acute distress Head exam: PRESENT: atraumatic Respiratory exam: PRESENT: symmetrical Cardiovascular exam: PRESENT: RRR Vascular exam: PRESENT: normal capillary refill Rectal exam: PRESENT: deferred Extremities exam: PRESENT: full ROM. ABSENT: calf tenderness, clubbing, pedal edema Neurological exam: PRESENT: alert, altered, awake, oriented to person, oriented to place, oriented to time Psychiatric exam: PRESENT: anxious Skin exam: PRESENT: dry, intact, warm. ABSENT: cyanosis, rash Results Laboratory Results: 03/19/19 04:48 03/19/19 04:48 03/18/19 03/19/19 03/19/19 10:22 04:48 04:48 WBC 11.4 H 9.2 RBC 3.44 L 3.32 L Hgb 8.8 L 8.5 L Hct 26.9 L 25.8 L MCV 78 L 78 L MCH 25.5 L 25.7 L MCHC 32.6 33.0 RDW 17.2 H 16.7 H Plt Count 271 233 Seg Neutrophils % 64.8 Sodium 134.2 L Potassium 3.8 Chloride 100 Carbon Dioxide 28 Anion Gap 6 BUN 6 L Creatinine 0.67 Est GFR ( Amer) > 60 Glucose 114 H Calcium 8.8 Impressions: Abdomen/Pelvis CT 03/16/19 00:00 IMPRESSION: NORMAL CT OF THE CHEST WITH IV CONTRAST. NORMAL CT OF THE ABDOMEN AND PELVIS WITH ORAL AND INTRAVENOUS CONTRAST. Chest CT 03/16/19 00:00 IMPRESSION: NORMAL CT OF THE CHEST WITH IV CONTRAST. NORMAL CT OF THE ABDOMEN AND PELVIS WITH ORAL AND INTRAVENOUS CONTRAST. Assessment & Plan - Diagnosis (1) Rectal pain Is this a current diagnosis for this admission?: Yes Plan: As discussed with Oncology with Dr. Desai at bedside, will increase long acting MS Contin 30mg to QID and continue oral hydromorphone for prn q4 h BTP. Long discussion with patient about realistic expectations regarding side effects from escalated medication dosing and pain relief. Will schedule alprazolam 0.5 mg q8H. Strongly would consider psychiatric referral given component of Anxiety to pain picture. Continue to minimize IV Dilaudid to allow for transition to outpatient for radiation therapy. Patient to go for PORT this morning. Would continue current regimen with close follow up in outpatient setting. Would continue clonidine. Would continue current bowel regimen and closely follow given current diagnosis and increasing opioid dosing.
[2019-03-19] MEDS: HEPARIN SOD (PORCINE) 5,000 UNIT/ML 1 ML VIAL SUBCUT SCH ×2 (09:10→21:40)
--- NOTE | 2019-03-19 09:40 | RADIOLOGY REPORT (SQ) ---
EXAM DESCRIPTION: MRI PELVIS COMBO COMPLETED DATE/TIME: 03/18/2019 1:39 pm REASON FOR STUDY: rectal cancer COMPARISON: CT abdomen pelvis 03/16/2019 TECHNIQUE: Multiplanar multisequence imaging performed without and with contrast including axial, sa gittal and coronal T2, axial T, axial gradient fat sat T1, axial, sagittal and coronal fat sat T2 pos t contrast. CONTRAST TYPE AND DOSE: 10 mL Dotarem. RENAL FUNCTION: None required. The patient is less than 50 years old. LIMITATIONS: None. FINDINGS: Marked inflammation of the rectum is present. On axial T2 images 23-27, a defect in the l eft lateral rectal wall is present with adjacent perirectal abscess. Perirectal abscess wraps around the rectum from the left lateral aspect towards the midline posterior aspect, 7.7 cm craniocaudad by 7 cm AP x 2 cm transverse. This is best shown on axial T2 images 10-26, and coronal images 10-14. There is extensive inflammation in the adjacent left ischiorectal fossa that, and inflammatory strand ing in the presacral fat. Postcontrast, there is diffuse enhancement along the left ischiorectal fos sa fat and left perirectal soft tissues. Marked distension of the sigmoid colon is present. At the upper edge of the field of view, marked di stention of the ascending colon is present. No dilated small bowel loops are seen. No bulky pelvic or inguinal lymph nodes are identified. These findings were discussed with Dr. Marianne aaron. BLADDER AND URETHRA: No focal bladder wall thickening or nodularity. Smooth mucosa. The urethra has smooth contour with no focal asymmetry. No abnormal enhancement. No focal lesions. VAGINA: There is increased T2 signal with enhancement along the left vaginal fornix on axial images 23-26. UTERUS: Normal size. No masses. Junctional zone normal. Uterus is 6 x 4 x 4 cm in size. RIGHT OVARY: Normal size. No masses. Best shown on axial T2 image 12, 3 x 2 cm in size. LEFT OVARY: Normal size. No masses. Best shown on axial T2 image 9, 3 x 2 cm in size. FREE FLUID: None. PELVIC SKELETAL STRUCTURES: No abnormal marrow signal. PELVIC SOFT TISSUES: Left perirectal abscess as above. EXTRA PELVIS SOFT TISSUES: No masses. No bulky inguinal adenopathy OTHER: No other significant finding. IMPRESSION: Defect in the left lateral rectal wall with perirectal abscess and surrounding inflammat ory change in the deep left and presacral pelvic fat. Findings discussed with Dr. Cordova TECHNICAL DOCUMENTATION: JOB ID: [id number] [employer]- All Rights Reserved Reading location - IP/workstation name: [email or web address]
[2019-03-19] MEDS: CIPROFLOXACIN 400 MG/D5W RTU 400 MG/200 ML RTUPB IV SCH ×2 (10:00→21:36)
--- NOTE | 2019-03-19 10:44 | PDOC PROGRESS REPORT ---
Subjective Subjective:: 34-year-old female with complaints of rectal bleeding and tenesmus. She underwent colonoscopy, revealing a rectal mass. The patient had several loose watery bowel movements overnight. She continues to complain of pelvic pain. She denies headache, vomiting, chest pain, fevers, chills, blurry vision, orthostasis, fatigue. She also continues to report vaginal as well as rectal bleeding. Reason For Visit: ABD/PELVIC PAIN,RECTAL MASS Physical Exam Vital Signs: Temp Pulse Resp BP Pulse Ox 98.9 F 75 12 93/49 L 94 03/19/19 07:00 03/19/19 07:00 03/19/19 07:00 03/19/19 07:00 03/19/19 07:00 Intake & Output 03/18/19 03/19/19 03/20/19 06:59 06:59 06:59 Intake Total 3630 1900 Balance 3630 1900 Weight 57 kg 59.2 kg Exam: General appearance: PRESENT: no acute distress, cooperative, sleepy Head exam: PRESENT: atraumatic, normocephalic Eye exam: PRESENT: EOMI, PERRLA Mouth exam: PRESENT: neck supple Neck exam: ABSENT: meningismus, tenderness, thyromegaly, tracheal deviation Respiratory exam: PRESENT: unlabored. ABSENT: chest wall tenderness, retraction, tachypnea, wheezes Cardiovascular exam: PRESENT: RRR Pulses: PRESENT: normal radial pulses Vascular exam: PRESENT: normal capillary refill. ABSENT: pallor GI/Abdominal exam: PRESENT: distended - mild, soft. ABSENT: tenderness Rectal exam: PRESENT: deferred Extremities exam: ABSENT: clubbing Musculoskeletal exam: ABSENT: deformity Neurological exam: PRESENT: altered, awake Psychiatric exam: PRESENT: anxious. ABSENT: agitated Focused psych exam: ABSENT: delusional Skin exam: ABSENT: cyanosis, erythema, jaundice Results Laboratory Results: 03/19/19 04:48 03/19/19 04:48 03/18/19 03/19/19 03/19/19 10:22 04:48 04:48 WBC 11.4 H 9.2 RBC 3.44 L 3.32 L Hgb 8.8 L 8.5 L Hct 26.9 L 25.8 L MCV 78 L 78 L MCH 25.5 L 25.7 L MCHC 32.6 33.0 RDW 17.2 H 16.7 H Plt Count 271 233 Seg Neutrophils % 64.8 Sodium 134.2 L Potassium 3.8 Chloride 100 Carbon Dioxide 28 Anion Gap 6 BUN 6 L Creatinine 0.67 Est GFR ( Amer) > 60 Glucose 114 H Calcium 8.8 Impressions: Abdomen/Pelvis CT 03/16/19 00:00 IMPRESSION: NORMAL CT OF THE CHEST WITH IV CONTRAST. NORMAL CT OF THE ABDOMEN AND PELVIS WITH ORAL AND INTRAVENOUS CONTRAST. Chest CT 03/16/19 00:00 IMPRESSION: NORMAL CT OF THE CHEST WITH IV CONTRAST. NORMAL CT OF THE ABDOMEN AND PELVIS WITH ORAL AND INTRAVENOUS CONTRAST. Pelvis MRI 03/18/19 00:00 IMPRESSION: Defect in the left lateral rectal wall with perirectal abscess and surrounding inflammatory change in the deep left and presacral pelvic fat. Findings discussed with Dr. Cordova Assessment & Plan - Diagnosis (1) Rectal bleeding Is this a current diagnosis for this admission?: Yes (2) Rectal pain Is this a current diagnosis for this admission?: Yes (3) Rectal cancer Is this a current diagnosis for this admission?: Yes - Plan Summary Plan Summary: This is a 34-year-old female status post colonoscopy, showing a rectal mass. I have discussed the case with Dr. Cordova. He is requesting a Mediport for chemotherapy. Plan to place Mediport today. Radiation oncology following. Biopsies pending. Will follow.
[2019-03-19] MEDS: RINGERS SOLUTION,LACTATED 1,000 ML IV PRN ×2 (10:59→15:26)
[2019-03-19] MEDS ORDERED: METRONIDAZOLE 500 MG/NS RTU 500 MG/100 ML RTUPB IV ONE (11:24)
[2019-03-19] MEDS ORDERED: PROPOFOL INJ 200 MG/20 ML VIAL IV ONE (11:34)
[2019-03-19] MEDS ORDERED: FENTANYL CITRATE INJ/PF 100 MCG/2 ML AMPUL ONE (11:34)
[2019-03-19] MEDS ORDERED: MIDAZOLAM 2 MG/2 ML INJ ONE (11:34)
[2019-03-19] MEDS ORDERED: DIPHENHYDRAMINE HCL 50 MG/ML VIAL IV PRN (11:57)
[2019-03-19] MEDS ORDERED: MORPHINE SULFATE 10 MG/ML INJ IV PRN (11:57)
[2019-03-19] MEDS ORDERED: PROMETHAZINE HCL INJ 25 MG/1 ML VIAL IV PRN (11:57)
[2019-03-19] MEDS ORDERED: MEPERIDINE HCL/PF INJ 25 MG/1 ML DISP.SYRIN IV PRN (11:57)
[2019-03-19] MEDS ORDERED: FENTANYL CITRATE INJ/PF 100 MCG/2 ML AMPUL IV PRN ×3 (11:57)
[2019-03-19] MEDS: BUPIVACAINE HCL 0.25 % INJ/PF (2.5 MG/1 ML) 30 ML VIAL ONE (12:17)
[2019-03-19] MEDS: DOCUSATE SODIUM 100 MG CAPSULE PO SCH ×2 (12:51→16:59)
[2019-03-19] MEDS: LACTULOSE SYRUP 20 GM/30 ML UDCUP PO SCH (12:51)
[2019-03-19] MEDS: METRONIDAZOLE 500 MG/NS RTU 500 MG/100 ML RTUPB IV SCH ×3 (13:51→23:26)
[2019-03-19] MEDS: ALPRAZOLAM 0.5 MG TABLET PO SCH ×2 (13:54→21:35)
[2019-03-19] MEDS: CYANOCOBALAMIN (VITAMIN B-12) INJ 1000 MCG/1 ML VIAL IM SCH (13:55)
--- NOTE | 2019-03-19 14:49 | RADIOLOGY REPORT (SQ) ---
EXAM DESCRIPTION: FLUORO/CV PLACEMENT COMPLETED DATE/TIME: 03/19/2019 1:43 pm REASON FOR STUDY: PORTACATH PLCMT LEFT SIDE ASSISTED WITH FLUORO IN OR COMPARISON: None. FLUOROSCOPY TIME: 0.4 minutes 3 C-arm images saved to PACS. TECHNIQUE: Intra-operative images acquired during surgical procedure to evaluate progress. NUMBER OF IMAGES: 3 C-arm images LIMITATIONS: None. FINDINGS: 3 C-arm images are submitted during placement of a left-sided permanent central line with the tip in the superior vena cava. Please see the operative report for further details IMPRESSION: Intra procedural imaging and fluoro COMMENT: Quality ID [id number]: Final reports for procedures using fluoroscopy that document radiation exp osure indices, or exposure time and number of fluorographic images (if radiation exposure indices are not available) Please consult full operative report of the attending physician for description of the procedure. TECHNICAL DOCUMENTATION: JOB ID: [id number] [employer]- All Rights Reserved Reading location - IP/workstation name: [email or web address]
[2019-03-19] MEDS: HYDROMORPHONE HCL 2 MG TABLET PO PRN ×2 (15:25→19:34)
--- NOTE | 2019-03-19 15:46 | RADIOLOGY REPORT (SQ) ---
EXAM DESCRIPTION: KUB/ABDOMEN (SINGLE VIEW) COMPLETED DATE/TIME: 03/19/2019 3:26 pm REASON FOR STUDY: constipation COMPARISON: None. NUMBER OF VIEWS: One view. TECHNIQUE: Supine radiographic image of the abdomen acquired. LIMITATIONS: None. FINDINGS: BOWEL GAS PATTERN: Nonobstructive pattern of bowel gas with gas present to the distal colo n. There is a moderate burden of stool in the left and right colon. No free air in the abdomen on s upine radiographs. CALCIFICATIONS: No suspicious calcifications. SOFT TISSUES: No gross mass or suggestion of organomegaly. HARDWARE: None in the abdomen. BONES: No acute fracture. No worrisome bone lesions. OTHER: No other significant finding. IMPRESSION: Nonobstructive pattern of bowel gas with gas present to the distal colon. There is a mo derate burden of stool in the left and right colon. No free air in the abdomen on supine radiographs . TECHNICAL DOCUMENTATION: JOB ID: [id number] [employer]- All Rights Reserved Reading location - IP/workstation name: [email or web address]
[2019-03-19] MEDS ORDERED: LACTULOSE SYRUP 20 GM/30 ML UDCUP PO PRN (16:00)
--- NOTE | 2019-03-19 17:27 | PDOC PROGRESS REPORT ---
Subjective Progress Note for:: 03/19/19 Subjective:: Called by Dr. Jesus Sotelo who requested transfer of service to the hospitalist team. Case discussed, chart and course reviewed. This a 34-year-old female who initially presented with vaginal discharge and tenesmus. She subsequently underwent colonoscopy and was found to have a rectal tumor found to be malignant. Oncology has been following patient. 03/18: Patient did have a fever this morning. She does complain of occasionally having difficulty urinating. She denies cough, chest pain or abdominal pain or chills. She is going for MediPort placement by surgery today for anticipated chemoradiation as recommended by oncology. 03/19: No acute event overnight. She she just had her Mediport placed. She denies abdominal pain. Last febrile episode was last night around 9 PM. MRI showed possible perirectal abscess. Discussed with oncology and surgery. There was no drainable abscess deemed apparent. We will add Flagyl to her current antibiotics. Will continue to monitor for recurrence of fever. Reason For Visit: ABD/PELVIC PAIN,RECTAL MASS Physical Exam Vital Signs: Temp Pulse Resp BP Pulse Ox 98.5 F 89 16 99/60 L 92 03/19/19 16:45 03/19/19 16:45 03/19/19 16:45 03/19/19 16:45 03/19/19 16:45 Intake & Output 03/18/19 03/19/19 03/20/19 06:59 06:59 06:59 Intake Total 3630 1900 1595 Balance 3630 1900 1595 Weight 125 lb 10.616 oz 130 lb 8.218 oz Results Laboratory Results: 03/19/19 04:48 03/19/19 04:48 03/19/19 03/19/19 04:48 04:48 WBC 9.2 RBC 3.32 L Hgb 8.5 L Hct 25.8 L MCV 78 L MCH 25.7 L MCHC 33.0 RDW 16.7 H Plt Count 233 Seg Neutrophils % 64.8 Sodium 134.2 L Potassium 3.8 Chloride 100 Carbon Dioxide 28 Anion Gap 6 BUN 6 L Creatinine 0.67 Est GFR ( Amer) > 60 Glucose 114 H Calcium 8.8 Impressions: Abdomen/Pelvis CT 03/16/19 00:00 IMPRESSION: NORMAL CT OF THE CHEST WITH IV CONTRAST. NORMAL CT OF THE ABDOMEN AND PELVIS WITH ORAL AND INTRAVENOUS CONTRAST. Chest CT 03/16/19 00:00 IMPRESSION: NORMAL CT OF THE CHEST WITH IV CONTRAST. NORMAL CT OF THE ABDOMEN AND PELVIS WITH ORAL AND INTRAVENOUS CONTRAST. Pelvis MRI 03/18/19 00:00 IMPRESSION: Defect in the left lateral rectal wall with perirectal abscess and surrounding inflammatory change in the deep left and presacral pelvic fat. Findings discussed with Dr. Cordova [facility]ance Fluoroscopy 03/19/19 00:00 IMPRESSION: Intra procedural imaging and fluoro KUB X-Ray 03/19/19 00:00 IMPRESSION: Nonobstructive pattern of bowel gas with gas present to the distal colon. There is a moderate burden of stool in the left and right colon. No free air in the abdomen on supine radiographs. Assessment and Plan - Diagnosis (1) Colorectal cancer Is this a current diagnosis for this admission?: Yes Plan: S/P Mediport placement by surgery today for anticipated chemoradiation by oncology. (2) UTI (urinary tract infection) Qualifiers: Urinary tract infection type: acute cystitis Hematuria presence: without hematuria Qualified Code(s): N30.00 - Acute cystitis without hematuria Is this a current diagnosis for this admission?: Yes Plan: Continue ciprofloxacin. (3) Vaginal discharge Is this a current diagnosis for this admission?: Yes Plan: Culture sent. Neg for Chlamydia and gonorrohea. (4) Anemia Qualifiers: Anemia type: iron deficiency Iron deficiency anemia type: chronic blood loss Qualified Code(s): D50.0 - Iron deficiency anemia secondary to blood loss (chronic) Is this a current diagnosis for this admission?: Yes (5) PTSD (post-traumatic stress disorder) Is this a current diagnosis for this admission?: Yes - Time Time Spent with patient: 25-34 minutes
--- NOTE | 2019-03-19 19:56 | PDOC PROGRESS REPORT ---
Subjective Progress Note for:: 03/19/19 Subjective:: patient was seen on morning rounds. Mother is at bedside. Patient states that pain and anxiety continue in waves. She is using her PRN meds. She is scheduled for a port later today. Reason For Visit: ABD/PELVIC PAIN,RECTAL MASS Physical Exam Vital Signs: Temp Pulse Resp BP Pulse Ox 98.5 F 89 16 99/60 L 92 03/19/19 16:45 03/19/19 16:45 03/19/19 16:45 03/19/19 16:45 03/19/19 16:45 Intake & Output 03/18/19 03/19/19 03/20/19 06:59 06:59 06:59 Intake Total 3629 1899 1954 Balance 3629 1899 1954 Weight 57 kg 59.2 kg General appearance: PRESENT: no acute distress, well-developed, well-nourished Head exam: PRESENT: normocephalic Respiratory exam: PRESENT: unlabored Neurological exam: PRESENT: alert, awake Psychiatric exam: PRESENT: other - tearful. Skin exam: PRESENT: normal color Results Laboratory Results: 03/19/19 04:48 03/19/19 04:48 03/19/19 03/19/19 04:48 04:48 WBC 9.2 RBC 3.32 L Hgb 8.5 L Hct 25.8 L MCV 78 L MCH 25.7 L MCHC 33.0 RDW 16.7 H Plt Count 233 Seg Neutrophils % 64.8 Sodium 134.2 L Potassium 3.8 Chloride 100 Carbon Dioxide 28 Anion Gap 6 BUN 6 L Creatinine 0.67 Est GFR ( Amer) > 60 Glucose 114 H Calcium 8.8 Impressions: Abdomen/Pelvis CT 03/16/19 00:00 IMPRESSION: NORMAL CT OF THE CHEST WITH IV CONTRAST. NORMAL CT OF THE ABDOMEN AND PELVIS WITH ORAL AND INTRAVENOUS CONTRAST. Chest CT 03/16/19 00:00 IMPRESSION: NORMAL CT OF THE CHEST WITH IV CONTRAST. NORMAL CT OF THE ABDOMEN AND PELVIS WITH ORAL AND INTRAVENOUS CONTRAST. Pelvis MRI 03/18/19 00:00 IMPRESSION: Defect in the left lateral rectal wall with perirectal abscess and surrounding inflammatory change in the deep left and presacral pelvic fat. Findings discussed with Dr. Cordova [facility] Fluoroscopy 03/19/19 00:00 IMPRESSION: Intra procedural imaging and fluoro KUB X-Ray 03/19/19 00:00 IMPRESSION: Nonobstructive pattern of bowel gas with gas present to the distal colon. There is a moderate burden of stool in the left and right colon. No free air in the abdomen on supine radiographs. Assessment & Plan - Diagnosis (1) Colon cancer Is this a current diagnosis for this admission?: Yes Plan: For consideration of concurrent chemo and radiation. Earliest this could start would be Saturday, but would prefer for patient to be strong enough for discharge prior to starting treatment. (2) Anemia Qualifiers: Anemia type: iron deficiency Iron deficiency anemia type: chronic blood loss Qualified Code(s): D50.0 - Iron deficiency anemia secondary to blood loss (chronic) Is this a current diagnosis for this admission?: Yes Plan: he has both iron and B12 deficiency. She lindo been started on IV iron as well as IM B12. Will monitor. (3) PTSD (post-traumatic stress disorder) Is this a current diagnosis for this admission?: Yes Plan: I have strongly encouraged her to see a counselor as outpatient as well as continue her pain and anxiety medication. he is working with pain management as well. - Plan Summary Plan Summary: Please call if needed. Will continue to follow.
[2019-03-19] MEDS: ZOLPIDEM TARTRATE 5 MG TABLET PO PRN (21:35)
[2019-03-20] MEDS: HYDROMORPHONE HCL 2 MG TABLET PO PRN ×4 (01:25→21:17)
[2019-03-20] MEDS: MORPHINE SULFATE SR 30 MG TABLET PO SCH ×3 (05:06→20:04)
[2019-03-20] MEDS: ALPRAZOLAM 0.5 MG TABLET PO SCH ×3 (05:06→21:16)
[2019-03-20] MEDS: METRONIDAZOLE 500 MG/NS RTU 500 MG/100 ML RTUPB IV SCH ×3 (05:07→20:05)
[2019-03-20] MEDS: ACETAMINOPHEN 325 MG TABLET PO PRN ×2 (05:33→12:57)
[2019-03-20] MEDS: RINGERS SOLUTION,LACTATED 1,000 ML IV PRN ×2 (05:34→19:33)
[2019-03-20] MEDS ORDERED: DIPHENHYDRAMINE HCL 25 MG CAPSULE PO PRN (08:43)
[2019-03-20] MEDS ORDERED: ACETAMINOPHEN 325 MG TABLET PO PRN (08:44)
--- NOTE | 2019-03-20 08:48 | PDOC PROGRESS REPORT ---
Subjective Progress Note for:: 03/20/19 Subjective:: Patient still having a lot of pain, she did have a fever of 102, having some diarrhea. Today we had a long discussion about next steps of care, we spent about 45 minutes in discussion. Reason For Visit: ABD/PELVIC PAIN,RECTAL MASS Physical Exam Vital Signs: Temp Pulse Resp BP Pulse Ox 100.1 F 94 18 96/57 L 94 03/20/19 07:15 03/20/19 07:15 03/20/19 07:15 03/20/19 07:15 03/20/19 07:15 Intake & Output 03/19/19 03/20/19 03/21/19 06:59 06:59 06:59 Intake Total 1900 3255 100 Balance 1900 3255 100 Weight 59.2 kg 57.3 kg Results Laboratory Results: 03/19/19 04:48 03/19/19 04:48 Impressions: Abdomen/Pelvis CT 03/16/19 00:00 IMPRESSION: NORMAL CT OF THE CHEST WITH IV CONTRAST. NORMAL CT OF THE ABDOMEN AND PELVIS WITH ORAL AND INTRAVENOUS CONTRAST. Chest CT 03/16/19 00:00 IMPRESSION: NORMAL CT OF THE CHEST WITH IV CONTRAST. NORMAL CT OF THE ABDOMEN AND PELVIS WITH ORAL AND INTRAVENOUS CONTRAST. Pelvis MRI 03/18/19 00:00 IMPRESSION: Defect in the left lateral rectal wall with perirectal abscess and surrounding inflammatory change in the deep left and presacral pelvic fat. Findings discussed with Dr. Cordova [facility] Fluoroscopy 03/19/19 00:00 IMPRESSION: Intra procedural imaging and fluoro KUB X-Ray 03/19/19 00:00 IMPRESSION: Nonobstructive pattern of bowel gas with gas present to the distal colon. There is a moderate burden of stool in the left and right colon. No free air in the abdomen on supine radiographs. Assessment & Plan - Diagnosis (1) Rectal cancer Is this a current diagnosis for this admission?: Yes Plan: Stage II versus 3 rectal cancer, plan for neoadjuvant chemotherapy first with FOLFOX then after 3-6 cycles plan for concurrent chemoradiation. We discussed plan today. Port is placed in hopeful start of therapy next week. (2) Rectal pain Is this a current diagnosis for this admission?: Yes Plan: Improved, continue with current pain therapy per pain management. (3) Anemia Qualifiers: Anemia type: iron deficiency Iron deficiency anemia type: chronic blood loss Qualified Code(s): D50.0 - Iron deficiency anemia secondary to blood loss (chronic) Is this a current diagnosis for this admission?: Yes Plan: Another dose of IV iron today but given her fact that her hemoglobin is dropping, will give 1 unit of blood as well. (4) UTI (urinary tract infection) Qualifiers: Urinary tract infection type: acute cystitis Hematuria presence: without hematuria Qualified Code(s): N30.00 - Acute cystitis without hematuria Is this a current diagnosis for this admission?: Yes Plan: UTI versus some element of perirectal abscess, continue with current antibiotic management, she did have a fever of 102 last night that was not recorded, so I believe she would benefit from another 24 hours of inpatient stay. Ultimately she will require oral therapy with Flagyl and Cipro. We had extensive discussions with radiology as well as surgery yesterday, at present there is no drainable collection of fluid and we do not believe that diverting ostomy is needed right now.
[2019-03-20] MEDS: CYANOCOBALAMIN (VITAMIN B-12) INJ 1000 MCG/1 ML VIAL IM SCH (09:32)
[2019-03-20] MEDS: CIPROFLOXACIN 400 MG/D5W RTU 400 MG/200 ML RTUPB IV SCH ×2 (09:33→21:17)
[2019-03-20] MEDS: HEPARIN SOD (PORCINE) 5,000 UNIT/ML 1 ML VIAL SUBCUT SCH ×2 (09:36→21:16)
[2019-03-20] MEDS: DOCUSATE SODIUM 100 MG CAPSULE PO SCH ×3 (09:36→20:04)
--- NOTE | 2019-03-20 10:14 | PDOC PROGRESS REPORT ---
Subjective Subjective:: 34-year-old female with complaints of rectal bleeding and tenesmus. She underwent colonoscopy, revealing a rectal mass. The patient continues to have loose watery bowel movements and incontinence. She continues to complain of pelvic pain. She denies headache, vomiting, chest pain, fevers, chills, blurry vision, orthostasis, fatigue. She also continues to report vaginal as well as rectal bleeding. Reason For Visit: ABD/PELVIC PAIN,RECTAL MASS Physical Exam Vital Signs: Temp Pulse Resp BP Pulse Ox 100.1 F 94 18 96/57 L 94 03/20/19 07:15 03/20/19 07:15 03/20/19 07:15 03/20/19 07:15 03/20/19 07:15 Intake & Output 03/19/19 03/20/19 03/21/19 06:59 06:59 06:59 Intake Total 1900 3255 100 Balance 1900 3255 100 Weight 59.2 kg 57.3 kg Exam: General appearance: PRESENT: no acute distress, cooperative, sleepy Head exam: PRESENT: atraumatic, normocephalic Eye exam: PRESENT: EOMI, PERRLA Mouth exam: PRESENT: neck supple Neck exam: ABSENT: meningismus, tenderness, thyromegaly, tracheal deviation Respiratory exam: PRESENT: unlabored. ABSENT: chest wall tenderness, retraction, tachypnea, wheezes Cardiovascular exam: PRESENT: RRR Pulses: PRESENT: normal radial pulses Vascular exam: PRESENT: normal capillary refill. ABSENT: pallor GI/Abdominal exam: PRESENT: distended - mild, soft. ABSENT: tenderness Rectal exam: PRESENT: deferred Extremities exam: ABSENT: clubbing Musculoskeletal exam: ABSENT: deformity Neurological exam: PRESENT: altered, awake Psychiatric exam: PRESENT: anxious. ABSENT: agitated Focused psych exam: ABSENT: delusional Skin exam: ABSENT: cyanosis, erythema, jaundice Results Laboratory Results: 03/19/19 04:48 03/19/19 04:48 Impressions: Abdomen/Pelvis CT 03/16/19 00:00 IMPRESSION: NORMAL CT OF THE CHEST WITH IV CONTRAST. NORMAL CT OF THE ABDOMEN AND PELVIS WITH ORAL AND INTRAVENOUS CONTRAST. Chest CT 03/16/19 00:00 IMPRESSION: NORMAL CT OF THE CHEST WITH IV CONTRAST. NORMAL CT OF THE ABDOMEN AND PELVIS WITH ORAL AND INTRAVENOUS CONTRAST. Pelvis MRI 03/18/19 00:00 IMPRESSION: Defect in the left lateral rectal wall with perirectal abscess and surrounding inflammatory change in the deep left and presacral pelvic fat. Findings discussed with Dr. Cordova [facility] Fluoroscopy 03/19/19 00:00 IMPRESSION: Intra procedural imaging and fluoro KUB X-Ray 03/19/19 00:00 IMPRESSION: Nonobstructive pattern of bowel gas with gas present to the distal colon. There is a moderate burden of stool in the left and right colon. No free air in the abdomen on supine radiographs. Assessment & Plan - Diagnosis (1) Rectal bleeding Is this a current diagnosis for this admission?: Yes (2) Rectal pain Is this a current diagnosis for this admission?: Yes (3) Rectal cancer Is this a current diagnosis for this admission?: Yes - Plan Summary Plan Summary: This is a 34-year-old female status post colonoscopy, showing a rectal mass. She is s/p Mediport for chemotherapy. She continues to complain of loose stools and incontinence. X-rays still show large amounts of stool within the colon. I have discussed the possibility of diverting loop colostomy to control the incontinence. The pt wishes to think about that possibility further. I performed another exam under anesthesia yesterday to investigate the possibility of a perirectal abscess. I cannot identify any significant perirectal infection on physical exam. I believe the rectal abnormality on MRI is related mostly to tumor. It is reasonable to continue abx for now. Will follow.
[2019-03-20 10:38] LABS: HEMATOCRIT 25.5 % (36.0-47.0); HEMOGLOBIN 8.4 g/dL (12.0-15.5); MEAN CORPUSCULAR HEMOGLOBIN 25.7 pg (27.0-33.4); MEAN CORPUSCULAR HGB CONC 32.9 g/dL (32.0-36.0); MEAN CORPUSCULAR VOLUME 78 fl (80-97); PLATELET COUNT 277 10^3/uL (150-450); RED BLOOD COUNT 3.26 10^6/uL (3.72-5.28); RED CELL DISTRIBUTION WIDTH 16.8 % (11.5-14.0); WHITE BLOOD COUNT 9.1 10^3/uL (4.0-10.5)
[2019-03-20] MEDS ORDERED: FERUMOXYTOL (NON-ESRD) 510 MG/NS 100 ML IV PRN ×2 (11:00)
[2019-03-20] MEDS ORDERED: FERUMOXYTOL (ESRD) 510 MG/NS 100 ML IV ONE ×2 (12:00)
[2019-03-20] MEDS ORDERED: SUCCINYLCHOLINE CHLORIDE INJ 200 MG/10 ML VIAL ONE (12:39)
[2019-03-20] MEDS ORDERED: ROCURONIUM BROMIDE INJ 50 MG/5 ML VIAL IV ONE (12:39)
[2019-03-20] MEDS: FAMOTIDINE INJ/PF 20 MG/2 ML SDV IV SCH ×2 (12:58→21:16)
[2019-03-20] MEDS: AMOXICILLIN TR/POT CLAVULANATE 500-125 MG TAB PO SCH ×2 (13:56→21:17)
[2019-03-20] MEDS ORDERED: BUPIVACAINE HCL 0.25 % INJ/PF (2.5 MG/1 ML) 30 ML VIAL ONE (16:49)
[2019-03-20] MEDS: BUPIVACAINE HCL 0.25 % INJ/PF (2.5 MG/1 ML) 30 ML VIAL ONE (16:52)
--- NOTE | 2019-03-20 16:58 | PDOC PROGRESS REPORT ---
Subjective Progress Note for:: 03/20/19 Subjective:: Called by Dr. Jesus Sotelo who requested transfer of service to the hospitalist team. Case discussed, chart and course reviewed. This a 34-year-old female who initially presented with vaginal discharge and tenesmus. She subsequently underwent colonoscopy and was found to have a rectal tumor found to be malignant. Oncology has been following patient. 03/18: Patient did have a fever this morning. She does complain of occasionally having difficulty urinating. She denies cough, chest pain or abdominal pain or chills. She is going for MediPort placement by surgery today for anticipated chemoradiation as recommended by oncology. 03/19: She she just had her Mediport placed. She denies abdominal pain. Last febrile episode was last night around 9 PM. MRI showed possible perirectal abscess. Discussed with oncology and surgery. There was no drainable abscess deemed apparent. We will add Flagyl to her current antibiotics. Will continue to monitor for recurrence of fever. 03/20: She had a fever last night and a low-grade temp of 100.7 this morning. She has loose stools. She says her abdominal discomfort is improved. She was tearful about the colostomy. Rediscussed this with patient and family at bedside and she expressed she is amenable to pursuing it. Reason For Visit: ABD/PELVIC PAIN,RECTAL MASS Physical Exam Vital Signs: Temp Pulse Resp BP Pulse Ox 97.8 F 76 14 93/63 L 100 03/20/19 15:57 03/20/19 15:57 03/20/19 15:57 03/20/19 15:57 03/20/19 15:57 Intake & Output 03/19/19 03/20/19 03/21/19 06:59 06:59 06:59 Intake Total 1900 3255 740 Balance 1900 3255 740 Weight 130 lb 8.218 oz 126 lb 5.198 oz General appearance: PRESENT: no acute distress, well-developed, well-nourished Head exam: PRESENT: atraumatic, normocephalic Eye exam: PRESENT: conjunctiva pink, EOMI, PERRLA. ABSENT: scleral icterus Ear exam: PRESENT: normal external ear exam Mouth exam: PRESENT: moist, tongue midline Neck exam: ABSENT: carotid bruit, JVD, lymphadenopathy, thyromegaly Respiratory exam: PRESENT: clear to auscultation eva. ABSENT: rales, rhonchi, wheezes Cardiovascular exam: PRESENT: RRR. ABSENT: diastolic murmur, rubs, systolic murmur Pulses: PRESENT: normal dorsalis pedis pul GI/Abdominal exam: PRESENT: normal bowel sounds, soft. ABSENT: distended, guarding, mass, organolmegaly, rebound, tenderness Rectal exam: PRESENT: deferred Neurological exam: PRESENT: alert, awake, oriented to person, oriented to place, oriented to time, oriented to situation, CN II-XII grossly intact. ABSENT: motor sensory deficit Results Laboratory Results: 03/20/19 08:52 03/19/19 04:48 03/20/19 03/20/19 08:52 08:52 WBC 9.1 RBC 3.26 L Hgb 8.4 L Hct 25.5 L MCV 78 L MCH 25.7 L MCHC 32.9 RDW 16.8 H Plt Count 277 Blood Type A POSITIVE Antibody Screen NEGATIVE Impressions: Abdomen/Pelvis CT 03/16/19 00:00 IMPRESSION: NORMAL CT OF THE CHEST WITH IV CONTRAST. NORMAL CT OF THE ABDOMEN AND PELVIS WITH ORAL AND INTRAVENOUS CONTRAST. Chest CT 03/16/19 00:00 IMPRESSION: NORMAL CT OF THE CHEST WITH IV CONTRAST. NORMAL CT OF THE ABDOMEN AND PELVIS WITH ORAL AND INTRAVENOUS CONTRAST. Pelvis MRI 03/18/19 00:00 IMPRESSION: Defect in the left lateral rectal wall with perirectal abscess and surrounding inflammatory change in the deep left and presacral pelvic fat. Findings discussed with Dr. Cordova [facility] Fluoroscopy 03/19/19 00:00 IMPRESSION: Intra procedural imaging and fluoro KUB X-Ray 03/19/19 00:00 IMPRESSION: Nonobstructive pattern of bowel gas with gas present to the distal colon. There is a moderate burden of stool in the left and right colon. No f ree air in the abdomen on supine radiographs. Assessment and Plan - Diagnosis (1) Colorectal cancer Is this a current diagnosis for this admission?: Yes Plan: S/P Mediport placement by surgery today for anticipated chemoradiation by oncology. (2) UTI (urinary tract infection) Qualifiers: Urinary tract infection type: acute cystitis Hematuria presence: without hematuria Qualified Code(s): N30.00 - Acute cystitis without hematuria Is this a current diagnosis for this admission?: Yes Plan: 03/19: Continue ciprofloxacin. 03/20: Urine culture came back growing E. coli resistant to ciprofloxacin and quinolones and Bactrim. She does say she tolerated amoxicillin before. we will start her on Augmentin. (3) Vaginal discharge Is this a current diagnosis for this admission?: Yes Plan: Culture sent. Neg for Chlamydia and gonorrohea. (4) Anemia Qualifiers: Anemia type: iron deficiency Iron deficiency anemia type: chronic blood loss Qualified Code(s): D50.0 - Iron deficiency anemia secondary to blood loss (chronic) Is this a current diagnosis for this admission?: Yes Plan: S/P 1 u prBC. (5) PTSD (post-traumatic stress disorder) Is this a current diagnosis for this admission?: Yes - Time Time Spent with patient: 25-34 minutes
[2019-03-20] MEDS ORDERED: MORPHINE SULFATE 10 MG/ML INJ IV PRN (17:04)
[2019-03-20] MEDS ORDERED: MEPERIDINE HCL/PF INJ 25 MG/1 ML DISP.SYRIN IV PRN (17:04)
[2019-03-20] MEDS ORDERED: PROMETHAZINE HCL INJ 25 MG/1 ML VIAL IV PRN ×2 (17:04)
[2019-03-20] MEDS ORDERED: DIPHENHYDRAMINE HCL 50 MG/ML VIAL IV PRN (17:04)
[2019-03-20] MEDS ORDERED: FENTANYL CITRATE INJ/PF 100 MCG/2 ML AMPUL IV PRN ×3 (17:04)
[2019-03-20] MEDS ORDERED: ONDANSETRON HCL INJ/PF 4 MG/2 ML SDV IV PRN (17:04)
[2019-03-20] MEDS ORDERED: HYDROMORPHONE HCL INJ/PF 2 MG/ML AMPULE ONE (18:34)
[2019-03-21] MEDS: MORPHINE SULFATE SR 30 MG TABLET PO SCH ×4 (00:43→17:47)
[2019-03-21] MEDS: METRONIDAZOLE 500 MG/NS RTU 500 MG/100 ML RTUPB IV SCH ×5 (00:46→23:18)
[2019-03-21] MEDS: ZOLPIDEM TARTRATE 5 MG TABLET PO PRN ×2 (01:36→23:18)
[2019-03-21] MEDS: HYDROMORPHONE HCL 2 MG TABLET PO PRN ×4 (01:39→22:22)
[2019-03-21] MEDS ORDERED: KETOROLAC TROMETHAMINE INJ/PF 30 MG/1 ML SDV ONE (03:58)
[2019-03-21] MEDS ORDERED: KETOROLAC TROMETHAMINE INJ/PF 30 MG/1 ML SDV IV PRN (04:00)
[2019-03-21] MEDS: PROMETHAZINE HCL INJ 25 MG/1 ML VIAL IV PRN (04:15)
[2019-03-21] MEDS: AMOXICILLIN TR/POT CLAVULANATE 500-125 MG TAB PO SCH ×3 (05:13→22:22)
[2019-03-21] MEDS: ALPRAZOLAM 0.5 MG TABLET PO SCH ×3 (05:13→22:22)
[2019-03-21] MEDS: RINGERS SOLUTION,LACTATED 1,000 ML IV PRN ×2 (06:07→22:36)
[2019-03-21] MEDS ORDERED: HYDROMORPHONE HCL INJ/PF 2 MG/ML AMPULE ONE (08:08)
[2019-03-21] MEDS ORDERED: FERUMOXYTOL (NON-ESRD) 510 MG/NS 100 ML IV ONE ×2 (10:00)
[2019-03-21] MEDS: HEPARIN SOD (PORCINE) 5,000 UNIT/ML 1 ML VIAL SUBCUT SCH ×2 (10:47→22:21)
[2019-03-21] MEDS: FAMOTIDINE INJ/PF 20 MG/2 ML SDV IV SCH ×2 (10:47→22:21)
[2019-03-21] MEDS: CIPROFLOXACIN 400 MG/D5W RTU 400 MG/200 ML RTUPB IV SCH ×2 (10:47→22:23)
[2019-03-21] MEDS: DOCUSATE SODIUM 100 MG CAPSULE PO SCH ×2 (10:47→17:43)
[2019-03-21] MEDS: SCOPOLAMINE HYDROBROMIDE 1.5 MG PATCH.TD72 TD SCH (11:15)
[2019-03-21] MEDS: CYANOCOBALAMIN (VITAMIN B-12) INJ 1000 MCG/1 ML VIAL IM SCH (11:15)
--- NOTE | 2019-03-21 11:40 | PDOC PROGRESS REPORT ---
Subjective Progress Note for:: 03/21/19 Subjective:: This morning called by nursing, patient only had oral medications ordered and had severe abdominal pain some relation to the new ostomy site and some relation to her known rectal pain from the cancer, I placed her on IV Dilaudid for pain scale of 4-5 and then oral Dilaudid for pain scale of 1-3. She will probably require IV pain medication of the next 24 hours and hopefully can transition completely to oral med bayron tomorrow. Reason For Visit: ABD/PELVIC PAIN,RECTAL MASS Physical Exam Vital Signs: Temp Pulse Resp BP Pulse Ox 97.2 F 53 L 18 108/68 94 03/21/19 08:00 03/21/19 08:00 03/21/19 08:00 03/21/19 08:00 03/21/19 08:00 Intake & Output 03/20/19 03/21/19 03/22/19 06:59 06:59 06:59 Intake Total 3255 4340 Output Total 5 Balance 3255 4335 Weight 57.3 kg 56.2 kg General appearance: PRESENT: no acute distress, well-developed, well-nourished Head exam: PRESENT: atraumatic, normocephalic Eye exam: PRESENT: conjunctiva pink, EOMI, PERRLA. ABSENT: scleral icterus Ear exam: PRESENT: normal external ear exam Mouth exam: PRESENT: moist, tongue midline Neck exam: ABSENT: carotid bruit, JVD, lymphadenopathy, thyromegaly Respiratory exam: PRESENT: clear to auscultation eva. ABSENT: rales, rhonchi, wheezes Cardiovascular exam: PRESENT: RRR. ABSENT: diastolic murmur, rubs, systolic murmur Pulses: PRESENT: normal dorsalis pedis pul Vascular exam: PRESENT: normal capillary refill GI/Abdominal exam: PRESENT: normal bowel sounds, soft. ABSENT: distended, guarding, mass, organolmegaly, rebound, tenderness Rectal exam: PRESENT: deferred Extremities exam: PRESENT: full ROM. ABSENT: calf tenderness, clubbing, pedal edema Neurological exam: PRESENT: alert, awake, oriented to person, oriented to place, oriented to time, oriented to situation, CN II-XII grossly intact. ABSENT: motor sensory deficit Psychiatric exam: PRESENT: appropriate affect, normal mood. ABSENT: homicidal ideation, suicidal ideation Skin exam: PRESENT: dry, intact, warm. ABSENT: cyanosis, rash Results Laboratory Results: 03/20/19 08:52 03/19/19 04:48 03/20/19 08:52 Blood Type A POSITIVE Antibody Screen NEGATIVE Impressions: Abdomen/Pelvis CT 03/16/19 00:00 IMPRESSION: NORMAL CT OF THE CHEST WITH IV CONTRAST. NORMAL CT OF THE ABDOMEN AND PELVIS WITH ORAL AND INTRAVENOUS CONTRAST. Chest CT 03/16/19 00:00 IMPRESSION: NORMAL CT OF THE CHEST WITH IV CONTRAST. NORMAL CT OF THE ABDOMEN AND PELVIS WITH ORAL AND INTRAVENOUS CONTRAST. Pelvis MRI 03/18/19 00:00 IMPRESSION: Defect in the left lateral rectal wall with perirectal abscess and surrounding inflammatory change in the deep left and presacral pelvic fat. Findings discussed with Dr. Cordova [facility] Fluoroscopy 03/19/19 00:00 IMPRESSION: Intra procedural imaging and fluoro KUB X-Ray 03/19/19 00:00 IMPRESSION: Nonobstructive pattern of bowel gas with gas present to the distal colon. There is a moderate burden of stool in the left and right colon. No free air in the abdomen on supine radiographs. Assessment & Plan - Diagnosis (1) Rectal cancer Is this a current diagnosis for this admission?: Yes Plan: Plan for neoadjuvant chemotherapy (2) Rectal pain Is this a current diagnosis for this admission?: Yes Plan: Added IV Dilaudid to her profile for the next 24 hours, I will see how she does by tomorrow and hopefully we can transition back to oral medications and see about discharge by Saturday if possible. (3) Anemia Qualifiers: Anemia type: iron deficiency Iron deficiency anemia type: chronic blood loss Qualified Code(s): D50.0 - Iron deficiency anemia secondary to blood loss (chronic) Is this a current diagnosis for this admission?: Yes Plan: Repeat hemoglobin pending today (4) UTI (urinary tract infection) Qualifiers: Urinary tract infection type: acute cystitis Hematuria presence: without hematuria Qualified Code(s): N30.00 - Acute cystitis without hematuria Is this a current diagnosis for this admission?: Yes Plan: Continue with antibiotics
[2019-03-21] MEDS: HYDROMORPHONE HCL INJ/PF 2 MG/ML AMPULE IV PRN (14:57)
--- NOTE | 2019-03-21 15:40 | PDOC PROGRESS REPORT ---
Subjective Progress Note for:: 03/21/19 Subjective:: Called by Dr. Jesus Sotelo who requested transfer of service to the hospitalist team. Case discussed, chart and course reviewed. This a 34-year-old female who initially presented with vaginal discharge and tenesmus. She subsequently underwent colonoscopy and was found to have a rectal tumor found to be malignant. Oncology has been following patient. 03/18: Patient did have a fever this morning. She does complain of occasionally having difficulty urinating. She denies cough, chest pain or abdominal pain or chills. She is going for MediPort placement by surgery today for anticipated chemoradiation as recommended by oncology. 03/19: She she just had her Mediport placed. She denies abdominal pain. Last febrile episode was last night around 9 PM. MRI showed possible perirectal abscess. Discussed with oncology and surgery. There was no drainable abscess deemed apparent. We will add Flagyl to her current antibiotics. Will continue to monitor for recurrence of fever. 03/20: She had a fever last night and a low-grade temp of 100.7 this morning. She has loose stools. She says her abdominal discomfort is improved. She was tearful about the colostomy. Rediscussed this with patient and family at bedside and she expressed she is amenable to pursuing it. 03/21: No fever overnight. Patient underwent diverting loop colostomy last night. She reported significant abdominal pain overnight. Upon encounter, she appears comfortable and reports relief from the Dilaudid. Noted loose stools on the colostomy bag. Reason For Visit: ABD/PELVIC PAIN,RECTAL MASS Physical Exam Vital Signs: Temp Pulse Resp BP Pulse Ox 97.2 F 53 L 18 108/68 94 03/21/19 08:00 03/21/19 08:00 03/21/19 08:00 03/21/19 08:00 03/21/19 08:00 Intake & Output 03/20/19 03/21/19 03/22/19 06:59 06:59 06:59 Intake Total 3255 4340 Output Total 5 Balance 3255 4335 Weight 126 lb 5.198 oz 123 lb 14.397 oz General appearance: PRESENT: no acute distress, well-developed, well-nourished Head exam: PRESENT: atraumatic, normocephalic Eye exam: PRESENT: conjunctiva pink, EOMI, PERRLA. ABSENT: scleral icterus Ear exam: PRESENT: normal external ear exam Mouth exam: PRESENT: moist, tongue midline Neck exam: ABSENT: carotid bruit, JVD, lymphadenopathy, thyromegaly Respiratory exam: PRESENT: clear to auscultation eva. ABSENT: rales, rhonchi, wheezes Cardiovascular exam: PRESENT: RRR. ABSENT: diastolic murmur, rubs, systolic murmur Pulses: PRESENT: normal dorsalis pedis pul GI/Abdominal exam: PRESENT: normal bowel sounds, soft, other - noted colostomy. ABSENT: distended, guarding, mass, organolmegaly, rebound, tenderness Rectal exam: PRESENT: deferred Neurological exam: PRESENT: alert, awake, oriented to person, oriented to place, oriented to time, oriented to situation, CN II-XII grossly intact. ABSENT: motor sensory deficit Results Laboratory Results: 03/20/19 08:52 03/19/19 04:48 03/20/19 08:52 Blood Type A POSITIVE Antibody Screen NEGATIVE Impressions: Abdomen/Pelvis CT 03/16/19 00:00 IMPRESSION: NORMAL CT OF THE CHEST WITH IV CONTRAST. NORMAL CT OF THE ABDOMEN AND PELVIS WITH ORAL AND INTRAVENOUS CONTRAST. Chest CT 03/16/19 00:00 IMPRESSION: NORMAL CT OF THE CHEST WITH IV CONTRAST. NORMAL CT OF THE ABDOMEN AND PELVIS WITH ORAL AND INTRAVENOUS CONTRAST. Pelvis MRI 03/18/19 00:00 IMPRESSION: Defect in the left lateral rectal wall with perirectal abscess and surrounding inflammatory change in the deep left and presacral pelvic fat. Findings discussed with Dr. Cordova [facility] Fluoroscopy 03/19/19 00:00 IMPRESSION: Intra procedural imaging and fluoro KUB X-Ray 03/19/19 00:00 IMPRESSION: Nonobstructive pattern of bowel gas with gas present to the distal colon. There is a moderate burden of stool in the left and right colon. No free air in the abdomen on supine radiographs. Assessment and Plan - Diagnosis (1) Colorectal cancer Is this a current diagnosis for this admission?: Yes Plan: S/P Mediport placement by surgery on 03/20 for anticipated chemoradiation by oncology. 03/21: S/P diverting loop colostomy last night. (2) UTI (urinary tract infection) Qualifiers: Urinary tract infection type: acute cystitis Hematuria presence: without hematuria Qualified Code(s): N30.00 - Acute cystitis without hematuria Is this a current diagnosis for this admission?: Yes Plan: 03/19: Continue ciprofloxacin. 03/20: Urine culture came back growing E. coli resistant to ciprofloxacin and quinolones and Bactrim. She does say she tolerated amoxicillin before. We will start her on Augmentin. (3) Vaginal discharge Is this a current diagnosis for this admission?: Yes Plan: Culture sent. Neg for Chlamydia and gonorrohea. (4) Anemia Qualifiers: Anemia type: iron deficiency Iron deficiency anemia type: chronic blood loss Qualified Code(s): D50.0 - Iron deficiency anemia secondary to blood loss (chronic) Is this a current diagnosis for this admission?: Yes Plan: S/P 1 u prBC. (5) PTSD (post-traumatic stress disorder) Is this a current diagnosis for this admission?: Yes - Time Time Spent with patient: 25-34 minutes
--- NOTE | 2019-03-21 17:06 | PDOC PROGRESS REPORT ---
Subjective Progress Note for:: 03/21/19 Reason For Visit: ABD/PELVIC PAIN,RECTAL MASS Physical Exam Vital Signs: Temp Pulse Resp BP Pulse Ox 97.4 F 62 18 110/76 95 03/21/19 11:38 03/21/19 11:38 03/21/19 11:38 03/21/19 11:38 03/21/19 11:38 Intake & Output 03/20/19 03/21/19 03/22/19 06:59 06:59 06:59 Intake Total 3255 4340 513 Output Total 5 Balance 3255 4335 513 Weight 57.3 kg 56.2 kg Results Laboratory Results: 03/20/19 08:52 03/19/19 04:48 03/19/19 06:10 Vaginal Gram Stain - Final Impressions: Abdomen/Pelvis CT 03/16/19 00:00 IMPRESSION: NORMAL CT OF THE CHEST WITH IV CONTRAST. NORMAL CT OF THE ABDOMEN AND PELVIS WITH ORAL AND INTRAVENOUS CONTRAST. Chest CT 03/16/19 00:00 IMPRESSION: NORMAL CT OF THE CHEST WITH IV CONTRAST. NORMAL CT OF THE ABDOMEN AND PELVIS WITH ORAL AND INTRAVENOUS CONTRAST. Pelvis MRI 03/18/19 00:00 IMPRESSION: Defect in the left lateral rectal wall with perirectal abscess and surrounding inflammatory change in the deep left and presacral pelvic fat. Findings discussed with Dr. Cordova [facility] Fluoroscopy 03/19/19 00:00 IMPRESSION: Intra procedural imaging and fluoro KUB X-Ray 03/19/19 00:00 IMPRESSION: Nonobstructive pattern of bowel gas with gas present to the distal colon. There is a moderate burden of stool in the left and right colon. No free air in the abdomen on supine radiographs. Assessment & Plan - Diagnosis (1) Rectal bleeding Is this a current diagnosis for this admission?: Yes (2) Rectal pain Is this a current diagnosis for this admission?: Yes (3) Rectal cancer Is this a current diagnosis for this admission?: Yes - Plan Summary Plan Summary: 34 y/o F s/p laparoscopic descending end colostomy placement. She reports abdominal pain, but her pain medication appears to be working. Her ostomy has some venous congestion, but it is viable and productive of stool. Long discussion was held with the family regarding treatment plan, prognosis, and timing of further surgical intervention. They have expressed understanding. Will follow.
[2019-03-21] MEDS: ACETAMINOPHEN 325 MG TABLET PO PRN (21:07)
[2019-03-22] MEDS: MORPHINE SULFATE SR 30 MG TABLET PO SCH ×3 (01:10→15:55)
[2019-03-22] MEDS: HYDROMORPHONE HCL 2 MG TABLET PO PRN ×3 (03:30→14:04)
[2019-03-22 06:05] LABS: ABSOLUTE EOSINOPHILS # (AUTO) 0.2 10^3/uL (0.0-0.6); ABSOLUTE LYMPHOCYTES (AUTO) 2.2 10^3/uL (0.5-4.7); ABSOLUTE MONOCYTES (AUTO) 1.2 10^3/uL (0.1-1.4); ABSOLUTE NEUT (AUTO) 4.7 10^3/uL (1.7-8.2); BASOPHILS % (AUTO) 0.2 % (0-2); EOSINOPHILS % (AUTO) 2.7 % (0-6); HEMATOCRIT 29.8 % (36.0-47.0); HEMOGLOBIN 9.9 g/dL (12.0-15.5); LYMPHOCYTES % (AUTO) 26.4 % (13-45); MEAN CORPUSCULAR HEMOGLOBIN 26.6 pg (27.0-33.4); MEAN CORPUSCULAR HGB CONC 33.1 g/dL (32.0-36.0); MEAN CORPUSCULAR VOLUME 80 fl (80-97); MONOCYTES % (AUTO) 14.1 % (3-13); PLATELET COUNT 241 10^3/uL (150-450); RED BLOOD COUNT 3.71 10^6/uL (3.72-5.28); RED CELL DISTRIBUTION WIDTH 16.9 % (11.5-14.0); SEGMENTED NEUTROPHILS % (AUTO) 56.6 % (42-78); TOTAL CELLS COUNTED % (AUTO) 100 %; WHITE BLOOD COUNT 8.3 10^3/uL (4.0-10.5)
[2019-03-22] MEDS: AMOXICILLIN TR/POT CLAVULANATE 500-125 MG TAB PO SCH ×2 (07:44→13:18)
[2019-03-22] MEDS: METRONIDAZOLE 500 MG/NS RTU 500 MG/100 ML RTUPB IV SCH ×2 (07:45→13:18)
[2019-03-22] MEDS: HYDROMORPHONE HCL INJ/PF 2 MG/ML AMPULE IV PRN (09:37)
[2019-03-22] MEDS: ALPRAZOLAM 0.5 MG TABLET PO SCH (09:57)
[2019-03-22] MEDS: ACETAMINOPHEN 325 MG TABLET PO PRN (10:19)
[2019-03-22] MEDS: RINGERS SOLUTION,LACTATED 1,000 ML IV PRN (10:25)
[2019-03-22] MEDS: CIPROFLOXACIN 400 MG/D5W RTU 400 MG/200 ML RTUPB IV SCH (10:27)
[2019-03-22] MEDS: FAMOTIDINE INJ/PF 20 MG/2 ML SDV IV SCH (10:27)
[2019-03-22] MEDS: HEPARIN SOD (PORCINE) 5,000 UNIT/ML 1 ML VIAL SUBCUT SCH (10:28)
[2019-03-22] MEDS: DOCUSATE SODIUM 100 MG CAPSULE PO SCH (10:30)
[2019-03-22] MEDS: CYANOCOBALAMIN (VITAMIN B-12) INJ 1000 MCG/1 ML VIAL IM SCH (10:30)
--- NOTE | 2019-03-22 11:13 | PDOC PROGRESS REPORT ---
Subjective Progress Note for:: 03/22/19 Subjective:: Patient doing better this morning, really wants to go home, has been doing primarily oral Dilaudid for breakthrough, and feels ready overall to potentially go home. Reason For Visit: ABD/PELVIC PAIN,RECTAL MASS Physical Exam Vital Signs: Temp Pulse Resp BP Pulse Ox 99.1 F 71 15 130/78 H 99 03/22/19 08:00 03/22/19 08:00 03/22/19 08:00 03/22/19 08:00 03/22/19 08:00 Intake & Output 03/21/19 03/22/19 03/23/19 06:59 06:59 06:59 Intake Total 4340 2653 1100 Output Total 5 700 Balance 4335 1953 1100 Weight 56.2 kg 56.4 kg General appearance: PRESENT: no acute distress, well-developed, well-nourished Head exam: PRESENT: atraumatic, normocephalic Eye exam: PRESENT: conjunctiva pink, EOMI, PERRLA. ABSENT: scleral icterus Ear exam: PRESENT: normal external ear exam Mouth exam: PRESENT: moist, tongue midline Neck exam: ABSENT: carotid bruit, JVD, lymphadenopathy, thyromegaly Respiratory exam: PRESENT: clear to auscultation eva. ABSENT: rales, rhonchi, wheezes Cardiovascular exam: PRESENT: RRR. ABSENT: diastolic murmur, rubs, systolic murmur Pulses: PRESENT: normal dorsalis pedis pul Vascular exam: PRESENT: normal capillary refill GI/Abdominal exam: PRESENT: normal bowel sounds, soft. ABSENT: distended, guarding, mass, organolmegaly, rebound, tenderness Rectal exam: PRESENT: deferred Extremities exam: PRESENT: full ROM. ABSENT: calf tenderness, clubbing, pedal edema Neurological exam: PRESENT: alert, awake, oriented to person, oriented to place, oriented to time, oriented to situation, CN II-XII grossly intact. ABSENT: motor sensory deficit Psychiatric exam: PRESENT: appropriate affect, normal mood. ABSENT: homicidal ideation, suicidal ideation Skin exam: PRESENT: dry, intact, warm. ABSENT: cyanosis, rash Results Laboratory Results: 03/22/19 05:05 03/19/19 04:48 03/22/19 05:05 WBC 8.3 RBC 3.71 L Hgb 9.9 L Hct 29.8 L MCV 80 MCH 26.6 L MCHC 33.1 RDW 16.9 H Plt Count 241 Seg Neutrophils % 56.6 03/19/19 06:10 Vaginal Gram Stain - Final 03/19/19 06:10 Vaginal Vaginal Culture - Final Normal Vaginal Marina Impressions: Abdomen/Pelvis CT 03/16/19 00:00 IMPRESSION: NORMAL CT OF THE CHEST WITH IV CONTRAST. NORMAL CT OF THE ABDOMEN AND PELVIS WITH ORAL AND INTRAVENOUS CONTRAST. Chest CT 03/16/19 00:00 IMPRESSION: NORMAL CT OF THE CHEST WITH IV CONTRAST. NORMAL CT OF THE ABDOMEN AND PELVIS WITH ORAL AND INTRAVENOUS CONTRAST. Pelvis MRI 03/18/19 00:00 IMPRESSION: Defect in the left lateral rectal wall with perirectal abscess and surrounding inflammatory change in the deep left and presacral pelvic fat. Findings discussed with Dr. Cordova [facility] Fluoroscopy 03/19/19 00:00 IMPRESSION: Intra procedural imaging and fluoro KUB X-Ray 03/19/19 00:00 IMPRESSION: Nonobstructive pattern of bowel gas with gas present to the distal colon. There is a moderate burden of stool in the left and right colon. No free air in the abdomen on supine radiographs. Assessment & Plan - Diagnosis (1) Rectal cancer Is this a current diagnosis for this admission?: Yes Plan: Plan for initiation of systemic chemotherapy probably in the next couple weeks. Patient will see us next week. (2) Rectal pain Is this a current diagnosis for this admission?: Yes Plan: Patient should be discharged home today I have given her a prescription for oral Dilaudid and MS Contin for a 2-week supply. I will take over her pain care. (3) Anemia Qualifiers: Anemia type: iron deficiency Iron deficiency anemia type: chronic blood loss Qualified Code(s): D50.0 - Iron deficiency anemia secondary to blood loss (chronic) Is this a current diagnosis for this admission?: Yes Plan: Hemoglobin improved (4) UTI (urinary tract infection) Qualifiers: Urinary tract infection type: acute cystitis Hematuria presence: without hematuria Qualified Code(s): N30.00 - Acute cystitis without hematuria Is this a current diagnosis for this admission?: Yes Plan: Patient will DC home with oral antibiotics as well as antibiotics for the perirectal abscess.
--- NOTE | 2019-03-22 12:30 | PDOC PROGRESS REPORT ---
Subjective Progress Note for:: 03/22/19 Reason For Visit: ABD/PELVIC PAIN,RECTAL MASS Physical Exam Vital Signs: Temp Pulse Resp BP Pulse Ox 99.1 F 71 15 130/78 H 99 03/22/19 08:00 03/22/19 08:00 03/22/19 08:00 03/22/19 08:00 03/22/19 08:00 Intake & Output 03/21/19 03/22/19 03/23/19 06:59 06:59 06:59 Intake Total 4340 2653 1100 Output Total 5 700 Balance 4335 1953 1100 Weight 56.2 kg 56.4 kg Results Laboratory Results: 03/22/19 05:05 03/19/19 04:48 03/22/19 05:05 WBC 8.3 RBC 3.71 L Hgb 9.9 L Hct 29.8 L MCV 80 MCH 26.6 L MCHC 33.1 RDW 16.9 H Plt Count 241 Seg Neutrophils % 56.6 03/19/19 06:10 Vaginal Gram Stain - Final 03/19/19 06:10 Vaginal Vaginal Culture - Final Normal Vaginal Marina Impressions: Abdomen/Pelvis CT 03/16/19 00:00 IMPRESSION: NORMAL CT OF THE CHEST WITH IV CONTRAST. NORMAL CT OF THE ABDOMEN AND PELVIS WITH ORAL AND INTRAVENOUS CONTRAST. Chest CT 03/16/19 00:00 IMPRESSION: NORMAL CT OF THE CHEST WITH IV CONTRAST. NORMAL CT OF THE ABDOMEN AND PELVIS WITH ORAL AND INTRAVENOUS CONTRAST. Pelvis MRI 03/18/19 00:00 IMPRESSION: Defect in the left lateral rectal wall with perirectal abscess and surrounding inflammatory change in the deep left and presacral pelvic fat. Findings discussed with Dr. Cordova [facility] Fluoroscopy 03/19/19 00:00 IMPRESSION: Intra procedural imaging and fluoro KUB X-Ray 03/19/19 00:00 IMPRESSION: Nonobstructive pattern of bowel gas with gas present to the distal colon. There is a moderate burden of stool in the left and right colon. No free air in the abdomen on supine radiographs. Assessment & Plan - Diagnosis (1) Rectal bleeding Is this a current diagnosis for this admission?: Yes (2) Rectal pain Is this a current diagnosis for this admission?: Yes (3) Rectal cancer Is this a current diagnosis for this admission?: Yes - Plan Summary Plan Summary: 34 y/o F s/p laparoscopic descending end colostomy placement. She reports abdominal pain, but her pain medication appears to be working. Her ostomy has some venous congestion, but it is viable and productive of stool. Discussion was held again with family and friends regarding treatment plan, prognosis, and timing of further surgical intervention. They have expressed understanding. Plan is for discharge today. Colostomy supply prescription is on the chart. Followup in my office in one week. Please call with any questions or concerns.
[2019-03-22] MEDS: PROMETHAZINE HCL INJ 25 MG/1 ML VIAL IV PRN (13:21)
[2019-03-22] MEDS ORDERED: NORMAL SALINE 500 ML IV ONE (14:15)
[2019-03-22 14:24] VITALS: BP 93/49
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
--- NOTE | 2019-03-23 15:34 | Operative Report ---
Nonrecallable Operative Report DATE OF SURGERY: 03/20/19 PREOPERATIVE DIAGNOSIS: Rectal cancer, pelvic pain, and incontinence POSTOPERATIVE DIAGNOSIS: Same as above OPERATION: Laparoscopic placement of an end, descending, left lower quadrant colostomy SURGEON: JUAN SHELTON ANESTHESIA: GA TISSUE REMOVED OR ALTERED: None COMPLICATIONS: None apparent ESTIMATED BLOOD LOSS: 10 cc PROCEDURE: Drains/implants: None. Procedure in detail: After informed consent was obtained, the patient was brought to the operating room and laid in the supine position. The area of the abdomen was prepped and draped in a normal sterile fashion. An incision was created in the infraumbilical position, at the site of a previous surgery. A 5 mm trocar was inserted into the abdomen under laparoscopic visualization, using the Optiview technique. Once the trocar was inserted, pneumoperitoneum was achieved. Another suprapubic 5 mm trocar was placed under direct laparoscopic visualization, as was a left lower quadrant 12 mm trocar. Next, the sigmoid colon was freed from the lateral pelvic sidewall using sharp dissection, electr ocautery, and harmonic scalpel. The ureter was identified and spared along its course. The superior rectal artery was identified and spared. The dissection was carried up the left paracolic gutter, dividing the white line of Toldt. After adequate mobilization of the sigmoid and descending colon, the sigmoid colon was divided above the peritoneal reflection. This was performed with an [place] 60 stapler with a blue load. Once this was completed, attention was turned to exteriorization of the colon and closure of the laparoscopic ports. The umbilical port was closed using 0 Vicryl suture in simple interrupted fashion, with the aid of the Moy-Andreas device. Once this was completed, a grasper was used to grasp the descending colon. The descending colon was then pulled up through the left lower quadrant abdominal wall. Adequate division of the fascia was ensured. Once the colon was exteriorized, attention was turned to closure of the skin incisions. The skin at the 5 mm trocar sites were closed using 4-0 Vicryl Rapide suture in subcuticular fashion. Dressings were then placed. Attention was then turned to maturing of the colostomy in Salome fashion. 3-0 Vicryl was used circumferentially to mature the colostomy in Salome fashion. After this was performed, a colostomy appliance was placed. At this time the procedure was concluded. All sponge, instrument, and needle counts were correct x2. Condition: Stable.
--- NOTE | 2019-03-24 17:12 | Operative Report ---
Nonrecallable Operative Report DATE OF SURGERY: 03/19/19 PREOPERATIVE DIAGNOSIS: Rectal cancer POSTOPERATIVE DIAGNOSIS: Same as above OPERATION: 1. Ultrasound-guided central venous puncture. 2. Left internal jugular vein Mediport placement SURGEON: JUAN SHELTON ANESTHESIA: LMAC TISSUE REMOVED OR ALTERED: None COMPLICATIONS: None apparent ESTIMATED BLOOD LOSS: Minimal PROCEDURE: Drains/implants: Left internal jugular vein Mediport. Procedure in detail: After informed consent was obtained, the patient was br ought to the operating room and laid in the Trendelenburg position. The area of the neck and chest were prepped and draped in a normal sterile fashion. An ultrasound was used to identify the left internal jugular vein. It was compressible with normal flow. Under direct ultrasonic guidance the supplied access needle was used to cannulate the left internal jugular vein. Dark venous, nonpulsatile blood was returned in the syringe. The wire was inserted into the vein easily. The wire was confirmed to be within the lumen of the vein using ultrasound as well as fluoroscopy. Photo documentation was left on the chart. Next, a separate incision was created in the left chest. A pocket was created. The catheter was tunneled from the Mediport hub site to the needle insertion site. Next, the dilator and breakaway sheath were inserted over the wire. This was done under direct fluoroscopic guidance. The wire and dilator were removed, leaving the breakaway sheath within the superior vena cava. The catheter was inserted into the sheath. The sheath was cracked and pulled away, leaving the catheter within the SVC. Next, the catheter was pulled back to an appropriate level. The catheter was trimmed to length and attached to the Mediport hub. The hub was then sutured to the chest wall using 3-0 Vicryl. The subcutaneous tissue was closed using 3-0 Vicryl suture in simple running fashion. The overlying skin was closed using 4-0 Vicryl Rapide suture in subcuticular fashion. A dressing was placed. The Mediport was then accessed, aspirated, and flushed with heparinized saline. Once this was completed, the procedure was concluded. All sponge, instrument, and needle counts were correct x2. Condition: Stable.
== END 2019-03-22 16:55 | disposition home health service (06) | DRG 330 ==
LOC: INTOOBSV 11:51 → 4N 11:51 → OBSVTOIN 03-18 13:03
PROVIDERS: ADMIT Obstetrics & Gynecology; ATTEND Obstetrics & Gynecology
PROC: 0DDP8ZX Extraction of Rectum, Via Natural or Artificial Opening Endoscopic, Diagnostic (ICD-10-PCS; 2019-03-17)
PROC: 3E1H78Z Irrigation of Lower GI using Irrigating Substance, Via Natural or Artificial Opening (ICD-10-PCS; 2019-03-17)
PROC: 02HV33Z Insertion of Infusion Device into Superior Vena Cava, Percutaneous Approach (ICD-10-PCS; 2019-03-19)
PROC: B548ZZA Ultrasonography of Superior Vena Cava, Guidance (ICD-10-PCS; 2019-03-19)
PROC: 30233N1 Transfusion of Nonautologous Red Blood Cells into Peripheral Vein, Percutaneous Approach (ICD-10-PCS; 2019-03-20)
PROC: 0D1M4Z4 Bypass Descending Colon to Cutaneous, Percutaneous Endoscopic Approach (ICD-10-PCS; principal; 2019-03-20 17:00)
DX: C19 Malignant neoplasm of rectosigmoid junction (principal); N39.0 Urinary tract infection, site not specified; K62.5 Hemorrhage of anus and rectum; D50.0 Iron deficiency anemia secondary to blood loss (chronic); K56.41 Fecal impaction; B96.20 Unspecified Escherichia coli [E. coli] as the cause of diseases classified elsewhere; F41.8 Other specified anxiety disorders; F43.10 Post-traumatic stress disorder, unspecified; F17.210 Nicotine dependence, cigarettes, uncomplicated
CPT/HCPCS: 36415; 36430; 45380; 532; 71260; 72197; 74018; 74177; 77001; 80048; 80053; 81001; 811; 82378; 82607; 82728; 82746; 83540; 83550; 840; 85025; 85027; 85045; 86850; 86900; 86901; 86920; 87040; 87070; 87086; 87088; 87186; 87205; 87491; 87591; 87880; 88305; A9576; C1788; G0378; G0379; J0330; J0744; J1100; J1170; J1642; J1644; J1885; J2250; J2405; J2550; J2704; J3010; J3420; J3490; J7050; J7120; P9016; Q0138; S0028

== ENCOUNTER → 2019-06-19 | Outpatient (CLI) | payer OTHER ==
--- NOTE | 2019-06-19 15:47 | RADIOLOGY REPORT (SQ) ---
EXAM DESCRIPTION: CT CHEST WITH COMPLETED DATE/TIME: 06/19/2019 2:57 pm REASON FOR STUDY: MALIGNANT NEOPLASM OF RECTUM (C20) C20 MALIGNANT NEOPLASM OF RECTUM COMPARISON: CT of the chest from 03/16/2019. TECHNIQUE: CT scan of the chest performed using helical scanning technique with dynamic intravenous contrast injection. Images reviewed with lung, soft tissue and bone windows. Reconstructed coronal and sagittal MPR and MIP images reviewed. All images stored on PACS. All CT scanners at this facility use dose modulation, iterative reconstruction, and/or weight based d osing when appropriate to reduce radiation dose to as low as reasonably achievable (ALARA). [facility]: Dose Right [facility]: CareDose [facility]: Dose Right [facility]: Teradose 4D [facility]: [employer] CONTRAST TYPE AND DOSE: Refer to the report of the CT of the abdomen and pelvis. RENAL FUNCTION: Creatinine 0.6 milligrams/deciliter RADIATION DOSE: DLP 344.93 mGy cm LIMITATIONS: None. FINDINGS: LUNGS AND PLEURA: The subpleural opacities in the right upper, right lower, and left lower lobes (images 32 38 and 39 of series 2) are nonspecific. There is no consolidation, pleural effusio n, pneumothorax, or pulmonary nodule/mass. HILAR AND MEDIASTINAL STRUCTURES: Stable nonenlarged calcified and noncalcified sub- carinal and righ t hilar lymph nodes. HEART AND VASCULAR STRUCTURES: Variant aberrant right subclavian artery. The thoracic aorta is carlito l in caliber. There is no thoracic aortic aneurysm. There is no cardiomegaly or pericardial effusio n. HARDWARE: The tip of the right IJ single-lumen port projects within the SVC. UPPER ABDOMEN: Refer to the separate report of the CT of the abdomen. THYROID AND OTHER SOFT TISSUES: No masses or adenopathy. BONES: The punctate sclerotic lesion within the anterior right 5th rib is unchanged. There is no fra cture. OTHER: No other finding. IMPRESSION: No thoracic metastases. TECHNICAL DOCUMENTATION: JOB ID: [id number] Quality ID # [id number]: Final reports with documentation of one or more dose reduction techniques (e.g., Au tomated exposure control, adjustment of the mA and/or kV according to patient size, use of iterative reconstruction technique) 2010 [employer]- All Rights Reserved Reading location - IP/workstation name: [email or web address]
--- NOTE | 2019-06-19 16:46 | RADIOLOGY REPORT (SQ) ---
EXAM DESCRIPTION: CT ABDOMEN WITH IV ORAL CONT COMPLETED DATE/TIME: 06/19/2019 2:57 pm REASON FOR STUDY: MALIGNANT NEOPLASM OF RECTUM (C20) C20 MALIGNANT NEOPLASM OF RECTUM COMPARISON: None. TECHNIQUE: CT scan of the abdomen performed with intravenous and with oral contrast using helical sc anning technique with dynamic intravenous contrast injection. Images reviewed with lung, soft tissue, and bone windows. Reconstructed coronal and sagittal MPR images reviewed. Delayed images for evaluat ion of the urinary system also acquired and evaluated. All images stored on PACS. All CT scanners at this facility use dose modulation, iterative reconstruc tion, and/or weight based dosing when appropriate to reduce radiation dose to as low as reasonably ac hievable (ALARA). [facility]: Dose Right [facility]: CareDose [facility]: Dose Right [facility]: Teradose 4D [facility]: [employer] CONTRAST TYPE AND DOSE: 78 mL Omnipaque 350- low osmolar. RENAL FUNCTION: GFR > 60. RADIATION DOSE: CT Rad equipment meets quality standard of care and radiation dose reduction techniq ues were employed. CTDIvol: 4.4 - 5.2 mGy. DLP: 345 mGy-cm. . LIMITATIONS: None. FINDINGS: LOWER CHEST: Refer to the separate report of the CT of the chest. LIVER: The morphology of the liver is non cirrhotic. The portal veins are patent. There is no hepat ic mass. SPLEEN: No splenomegaly or splenic mass. PANCREAS: No acute abnormality of the pancreas. GALLBLADDER: No abnormality that is apparent on CT. ADRENAL GLANDS: No mass or asymmetry. RIGHT KIDNEY AND URETER: 2 mm calculus within an upper pole calyx. There is no hydronephrosis or so lid mass. LEFT KIDNEY AND URETER: 3 mm calculus within an upper pole calyx. There is no hydronephrosis or michael d mass. AORTA AND VESSELS: No aneurysm of the abdominal aorta. The abdominal vasculature is patent. RETROPERITONEUM: No retroperitoneal adenopathy, hemorrhage or mass. BOWEL AND PERITONEAL CAVITY: Colostomy in the left lower quadrant. The stomach is distended. There is no bowel obstruction, bowel wall thickening, pericolonic/ perienteric inflammation. There is no m esenteric adenopathy, free intraperitoneal fluid or omental/mesenteric inflammation. APPENDIX: Unable to visualize the appendix. ABDOMINAL WALL: As above. BONES: No acute findings. OTHER: No other finding. IMPRESSION: 1. No acute intra-abdominal abnormality. 2. Left lower quadrant colostomy. 3. Bilateral caliceal calculi. TECHNICAL DOCUMENTATION: JOB ID: [id number] Quality ID # [id number]: Final reports with documentation of one or more dose reduction techniques (e.g., Au tomated exposure control, adjustment of the mA and/or kV according to patient size, use of iterative reconstruction technique) 2010 [employer]- All Rights Reserved Reading location - IP/workstation name: [email or web address]
--- NOTE | 2019-06-22 21:28 | RADIOLOGY REPORT (SQ) ---
EXAM DESCRIPTION: MRI PELVIS COMBO COMPLETED DATE/TIME: 06/19/2019 REASON FOR STUDY: C20 MALIGNANT NEOPLASM OF RECTUM C20 MALIGNANT NEOPLASM OF RECTUM COMPARISON: None. TECHNIQUE: Sagittal, axial oblique, and coronal oblique T2-weighted images of the pelvis without con trast centered on the rectum. Axial images of the pelvis. FINDINGS: BRIEF DESCRIPTION OF MASS: Bulky tumor with clear extraluminal extension fills the lumen o f the lower rectum. LOCATION OF TUMOR: Low-mid rectal. DISTANCE FROM ANORECTAL JUNCTION TO LOWER POLE OF TUMOR: 0 cm. Anal rectal junction involved. LENGTH OF TUMOR: Approximately 5 Cm. INVOLVEMENT OF MUSCULARIS PROPIA: Yes. EXTENSION BEYOND MUSCULARIS PROPIA: Yes. DISTANCE BETWEEN TUMOR AND MESORECTAL FASCIA: Invasion of the mesorectal fascia, particularly on the left. PATHOLOGIC LYMPH NODES: Several subcentimeter (3 mm short axis or less) upper perirectal lymph nodes, not enlarged or clearly morphologically abnormal. INVASION OF PELVIC STRUCTURES: Extraluminal tumor extends anteriorly and invades the vagina by history. IMPRESSION: T STAGE: T4 Tumor invades other organs N STAGE: N0 No pathologic lymph nodes TECHNICAL DOCUMENTATION: JOB ID: [id number] [employer]- All Rights Reserved Reading location - IP/workstation name: [email or web address]
== END ==
LOC: RAD 13:32
PROVIDERS: ATTEND Physician Assistant Medical
DX: C20 Malignant neoplasm of rectum (principal)
CPT/HCPCS: 72197; 71260; 74160; A9576

== ENCOUNTER 2019-11-04 18:46 | Inpatient (IN) | payer OTHER ==
[2019-11-04] MEDS ORDERED: HYDROMORPHONE HCL INJ/PF 2 MG/ML AMPULE IV PRN (19:19)
[2019-11-04 20:40] LABS: ABSOLUTE EOSINOPHILS # (AUTO) 0.2 10^3/uL (0.0-0.6); ABSOLUTE MONOCYTES (AUTO) 0.8 10^3/uL (0.1-1.4); ABSOLUTE NEUT (AUTO) 6.2 10^3/uL (1.7-8.2); BASOPHILS % (AUTO) 0.3 % (0-2); EOSINOPHILS % (AUTO) 2.2 % (0-6); HEMATOCRIT 24.4 % (36.0-47.0); HEMOGLOBIN 8.4 g/dL (12.0-15.5); LYMPHOCYTES % (AUTO) 12.5 % (13-45); MEAN CORPUSCULAR HEMOGLOBIN 31.5 pg (27.0-33.4); MEAN CORPUSCULAR HGB CONC 34.4 g/dL (32.0-36.0); MEAN CORPUSCULAR VOLUME 92 fl (80-97); MONOCYTES % (AUTO) 9.5 % (3-13); PLATELET COUNT 480 10^3/uL (150-450); RED BLOOD COUNT 2.67 10^6/uL (3.72-5.28); SEGMENTED NEUTROPHILS % (AUTO) 75.5 % (42-78); TOTAL CELLS COUNTED % (AUTO) 100 %; WHITE BLOOD COUNT 8.2 10^3/uL (4.0-10.5)
[2019-11-04 21:11] LABS: ALBUMIN 2.9 g/dL (3.5-5.0); ALKALINE PHOSPHATASE 96 U/L (38-126); ANION GAP 5 (5-19); ASPARTATE AMINO TRANSFERASE 19 U/L (14-36); BILIRUBIN,DIRECT 0.2 mg/dL (0.0-0.4); BILIRUBIN,TOTAL 0.4 mg/dL (0.2-1.3); BLOOD UREA NITROGEN 11 mg/dL (7-20); CALCIUM 8.5 mg/dL (8.4-10.2); CARBON DIOXIDE 29 mmol/L (22-30); CHLORIDE 102 mmol/L (98-107); GLUCOSE 91 mg/dL (75-110); POTASSIUM 3.6 mmol/L (3.6-5.0); TOTAL PROTEIN 5.8 g/dL (6.3-8.2)
[2019-11-04] MEDS: NORMAL SALINE 1000 ML 1,000 ML IV PRN (21:26)
[2019-11-04] MEDS: ALPRAZOLAM 0.5 MG TABLET PO PRN (21:26)
[2019-11-04] MEDS: HYDROMORPHONE HCL 2 MG TABLET PO PRN (21:27)
[2019-11-04] MEDS ORDERED: CEFTRIAXONE SODIUM 500 MG in NORMAL SALINE 25 ML IV SCH (22:00)
[2019-11-04] MEDS ORDERED: CIPROFLOXACIN 400 MG/D5W RTU 400 MG/200 ML RTUPB IV ONE (23:00)
[2019-11-04 23:41] LABS: APPEARANCE,URINE SLIGHTLY-CLOUDY; BILIRUBIN,URINE NEGATIVE (NEGATIVE); COLOR,URINE YELLOW; GLUCOSE, URINE NEGATIVE (NEGATIVE); KETONES,URINE NEGATIVE (NEGATIVE); LEUKOCYTE ESTERASE,URINE SMALL (NEGATIVE); NITRITE,URINE NEGATIVE (NEGATIVE); PROTEIN,URINE NEGATIVE (NEGATIVE); URINE SPECIFIC GRAVITY 1.014; UROBILINOGEN,URINE NEGATIVE mg/dL (<2.0)
[2019-11-05] MEDS ORDERED: CIPROFLOXACIN 400 MG/D5W RTU 400 MG/200 ML RTUPB IV ONE ×2 (01:00→01:03)
[2019-11-05] MEDS: ZOLPIDEM TARTRATE 5 MG TABLET PO PRN ×2 (01:03→23:06)
--- NOTE | 2019-11-05 06:17 | PDOC CONSULTATION ---
Consultation Consult Date: 11/05/19 Provider Consulted: JUAN SHELTON Consult reason:: Perineal abscess status post abdominoperineal resection for rectal cancer History of Present Illness Admission Date/PCP: 11/04/19 18:46 BROWN MOLINA MD Patient complains of: Pain, swelling, and drainage at her perineal incision after APR History of Present Illness: ABRAHAM BUSTOS is a 34 year old female seen in consultation at the request of Dr. Molina. The patient is well-known to me. She has a history of locally advanced rectal cancer. She was seen at [facility], where an abdominoperineal resection was performed. The patient reports a 2 to 3-day history of pain, swelling, and now drainage at her perineal incision. She denies fevers or chills. She also denies chest pain, shortness of breath, nausea, vomiting, melanotic stool, hematemesis, blurry vision, dizziness, orthostasis, headache, fatigue, or malaise. Her pain does not radiate. She reports it is a dull, throbbing pain. She rates it 5 out of 10. Nothing makes her pain better. Palpation and pressure make it worse. Past Medical History Cardiac Medical History: Denies: Coronary Artery Disease, Myocardial Infarction, Hypertension Pulmonary Medical History: Reports: Asthma - MILD Denies: Bronchitis, Chronic Obstructive Pulmonary Disease (COPD), Pneumonia Neurological Medical History: Reports: Migraine Denies: Seizures Musculoskeltal Medical History: Denies: Arthritis Psychiatric Medical History: Reports: Depression, Post Traumatic Stress Disorder Hematology: Reports: Anemia Social History Smoking Status: Never Smoker Frequency of Alcohol Use: None Hx Recreational Drug Use: No Drugs: None Hx Prescription Drug Abuse: No Family History Family History: Reviewed & Not Pertinent Parental Family History Reviewed: Yes Children Family History Reviewed: Yes Sibling(s) Family History Reviewed.: Yes Medication/Allergy Home Medications: Scopolamine 1 each TD Q3DAYS 03/16/19 Zolpidem Tartrate [Ambien] 10 mg PO QHS 03/16/19 Estradiol 0.05 mg PO DAILY 11/04/19 Hydromorphone HCl [Dilaudid] 4 mg PO Q6HP PRN 11/04/19 Lorazepam [Ativan 1 mg Tablet] 1 mg PO Q6 11/04/19 Morphine Sulfate [Morphine Sulfate ER] 45 mg PO Q6 11/04/19 Ondansetron [Zofran Odt 4 mg Tablet] 8 mg PO Q8HP PRN 11/04/19 Promethazine HCl [Phenergan 25 mg Tablet] 25 mg PO Q6HP PRN 11/04/19 Vortioxetine Hydrobromide [Trintellix] 10 mg PO QHS 11/04/19 Allergies/Adverse Reactions: cefaclor [From Ceclor] Allergy (Verified 03/06/19 08:23) Review of Systems Constitutional: ABSENT: anorexia, chills, fatigue, fever(s), weakness Eyes: ABSENT: visual disturbances Ears: ABSENT: hearing changes Nose, Mouth, and Throat: ABSENT: sore throat Cardiovascular: ABSENT: chest pain Respiratory: ABSENT: cough, dyspnea Gastrointestinal: ABSENT: bloating, melena, nausea, vomiting Genitourinary: ABSENT: dysuria Musculoskeletal: ABSENT: back pain Integumentary: PRESENT: wounds - pain and drainage from perineal wound Psychiatric: ABSENT: anxiety, depression Endocrine: ABSENT: cold intolerance, heat intolerance Hematologic/Lymphatic: ABSENT: easy bleeding, easy bruising Physical Exam General appearance: PRESENT: no acute distress, cooperative Head exam: PRESENT: atraumatic, normocephalic Eye exam: PRESENT: EOMI, PERRLA. ABSENT: scleral icterus Mouth exam: PRESENT: moist, neck supple Neck exam: ABSENT: meningismus, tenderness, thyromegaly, tracheal deviation Respiratory exam: PRESENT: unlabored. ABSENT: chest wall tenderness, tachypnea, wheezes Cardiovascular exam: ABSENT: tachycardia Vascular exam: ABSENT: pallor GI/Abdominal exam: PRESENT: soft, other - Left lower quadrant colostomy is pink and productive. ABSENT: distended, tenderness Rectal exam: PRESENT: other - Perineal incision with a small opening posteriorly. There is no active drainage at this time. There is minimal erythema. Extremities exam: ABSENT: clubbing Musculoskeletal exam: ABSENT: deformity Neurological exam: PRESENT: alert, awake, oriented to person, oriented to place, oriented to time, oriented to situation, CN II-XII grossly intact. ABSENT: motor sensory deficit Psychiatric exam: PRESENT: anxious Focused psych exam: ABSENT: delusional Skin exam: ABSENT: cyanosis, erythema, jaundice Results Laboratory Results: 11/04/19 20:21 11/04/19 20:21 11/04/19 11/04/19 20:21 20:21 WBC 8.2 RBC 2.67 L Hgb 8.4 L Hct 24.4 L MCV 92 MCH 31.5 MCHC 34.4 RDW 14.0 Plt Count 480 H Seg Neutrophils % 75.5 Sodium 136.1 L Potassium 3.6 Chloride 102 Carbon Dioxide 29 Anion Gap 5 BUN 11 Creatinine 0.64 Est GFR ( Amer) > 60 Glucose 91 Calcium 8.5 Total Bilirubin 0.4 AST 19 Alkaline Phosphatase 96 Total Protein 5.8 L Albumin 2.9 L Assessment & Plan - Diagnosis (1) Dehiscence of perineal wound Is this a current diagnosis for this admission?: Yes (2) Infection of perineal wound Is this a current diagnosis for this admission?: Yes - Plan Summary Plan Summary: This is a 34-year-old female who is status post abdominoperineal resection for rectal cancer at [facility]. She presents today with pain, swelling, and drainage of her perineal incision. On examination, there is a small opening posteriorly. There is minimal drainage upon my examination. Currently, she does not exhibit fevers, chills, or leukocytosis. There is no significant erythema present. I will order a CT scan to evaluate her pelvis. This will help determine the extent of the infectious process. The patient may require washout of her perineal wound, depending upon her CT scan. Start antibiotics. I will follow this patient closely with you.
--- NOTE | 2019-11-05 07:50 | PDOC PROGRESS REPORT ---
Subjective Progress Note for:: 11/05/19 Subjective:: 34-year-old female with a perineal wound infection status post abdominal perineal resection at [facility] for rectal cancer. The patient reports that her pain is controlled. She reports a small amount of drainage from the wound overnight. She is awaiting CT scan today. She denies fevers, chills, chest pain, shortness of breath, nausea, vomiting, dizziness, orthostasis. Reason For Visit: PELVIC PERINEAL ABSCESS Physical Exam Vital Signs: Temp Pulse Resp BP Pulse Ox 98.2 F 90 16 101/57 L 100 11/05/19 04:37 11/05/19 04:37 11/05/19 04:37 11/05/19 04:37 11/05/19 04:37 Intake & Output 11/04/19 11/05/19 11/06/19 06:59 06:59 06:59 Output Total 275 Balance -275 Weight 70.3 kg Exam: General appearance: PRESENT: no acute distress, cooperative Head exam: PRESENT: atraumatic, normocephalic Eye exam: PRESENT: EOMI, PERRLA. ABSENT: scleral icterus Mouth exam: PRESENT: moist, neck supple Neck exam: ABSENT: meningismus, tenderness, thyromegaly, tracheal deviation Respiratory exam: PRESENT: unlabored. ABSENT: chest wall tenderness, tachypnea, wheezes Cardiovascular exam: ABSENT: tachycardia Vascular exam: ABSENT: pallor GI/Abdominal exam: PRESENT: soft, other - Left lower quadrant colostomy is pink and productive. ABSENT: distended, tenderness Rectal exam: PRESENT: other - Perineal incision with a small opening posteriorly. There is no active drainage at this time. There is minimal erythema. Extremities exam: ABSENT: clubbing Musculoskeletal exam: ABSENT: deformity Neurological exam: PRESENT: alert, awake, oriented to person, oriented to place, oriented to time, oriented to situation, CN II-XII grossly intact. ABSENT: motor sensory deficit Psychiatric exam: PRESENT: anxious Focused psych exam: ABSENT: delusional Skin exam: ABSENT: cyanosis, erythema, jaundice Results Laboratory Results: 11/04/19 20:21 11/04/19 20:21 11/04/19 11/04/19 11/04/19 20:21 20:21 22:35 WBC 8.2 RBC 2.67 L Hgb 8.4 L Hct 24.4 L MCV 92 MCH 31.5 MCHC 34.4 RDW 14.0 Plt Count 480 H Seg Neutrophils % 75.5 Sodium 136.1 L Potassium 3.6 Chloride 102 Carbon Dioxide 29 Anion Gap 5 BUN 11 Creatinine 0.64 Est GFR ( Amer) > 60 Glucose 91 Calcium 8.5 Total Bilirubin 0.4 AST 19 Alkaline Phosphatase 96 Total Protein 5.8 L Albumin 2.9 L Urine Color YELLOW Urine Appearance SLIGHTLY-CLOUDY Urine pH 6.0 Ur Specific [place] 1.014 Urine Protein NEGATIVE Urine Glucose (UA) NEGATIVE Urine Ketones NEGATIVE Urine Blood SMALL H Urine Nitrite NEGATIVE Ur Leukocyte Esterase SMALL H Urine WBC (Auto) 5 Urine RBC (Auto) 6 Assessment & Plan - Diagnosis (1) Dehiscence of perineal wound Is this a current diagnosis for this admission?: Yes (2) Infection of perineal wound Is this a current diagnosis for this admission?: Yes - Plan Summary Plan Summary: 34-year-old female with a perineal wound infection after APR at [facility]. Plan for CT scan, to evaluate the extent of the infectious process. Plans to be made after CT scan has been reviewed. Continue antibiotics. Continue with supportive care.
[2019-11-05] MEDS: HYDROMORPHONE HCL 2 MG TABLET PO PRN (08:08)
[2019-11-05] MEDS: NORMAL SALINE 1000 ML 1,000 ML IV PRN (08:09)
[2019-11-05] MEDS: DOXYCYCLINE HYCLATE 100 MG in DEXTROSE 5%-WATER 250 ML IV SCH ×2 (09:57→21:21)
[2019-11-05] MEDS ORDERED: CIPROFLOXACIN 400 MG/D5W RTU 400 MG/200 ML RTUPB IV SCH (10:00)
[2019-11-05] MEDS: ALPRAZOLAM 0.5 MG TABLET PO PRN ×2 (10:05→23:06)
--- NOTE | 2019-11-05 12:40 | PDOC CONSULTATION ---
Consultation Consult Date: 11/05/19 Attending physician:: BROWN MOLINA Provider Consulted: GO DENTON Consult reason:: Stage II rectal ca s/p APR History of Present Illness Admission Date/PCP: 11/04/19 18:46 BROWN MOLINA MD Patient complains of: Drainage, pain post surgery History of Present Illness: ABRAHAM BUSTOS is a 34 year old female well known to our oncology clinic with dx of rectal ca w/ vaginal involvement, she recently had extensive surgery at [facility], per notes she comes in w/ c/o of drainage and pain in that area. She had pain since dx, has been on high dose extended release morphine for this. Dr. Siegel has been consulted and CT is planned to look for possible abcess post surgery. I have shared contact info of her surgeon at [facility] w/ DR. Siegel, she is on atbx. Past Medical History Cardiac Medical History: Denies: Coronary Artery Disease, Myocardial Infarction, Hypertension Pulmonary Medical History: Reports: Asthma - MILD Denies: Bronchitis, Chronic Obstructive Pulmonary Disease (COPD), Pneumonia Neurological Medical History: Reports: Migraine Denies: Seizures Malignancy Medical History: Reports: Other - rectal ca Musculoskeltal Medical History: Denies: Arthritis Psychiatric Medical History: Reports: Depression, Post Traumatic Stress Disorder Hematology: Reports: Anemia Past Surgical History Past Surgical History: Reports: Other - APR, colonoscopy, port placement Social History Information Source: Patient Smoking Status: Never Smoker Electronic Cigarette use?: No Frequency of Alcohol Use: None Hx Recreational Drug Use: No Drugs: None Hx Prescription Drug Abuse: No - Advance Directive Resuscitation Status: Full Code Family History Family History: Reviewed & Not Pertinent Parental Family History Reviewed: Yes Children Family History Reviewed: Yes Sibling(s) Family History Reviewed.: Yes Medication/Allergy Home Medications: Scopolamine 1 each TD Q3DAYS 03/16/19 Zolpidem Tartrate [Ambien] 10 mg PO QHS 03/16/19 Estradiol 0.05 mg PO DAILY 11/04/19 Hydromorphone HCl [Dilaudid] 4 mg PO Q6HP PRN 11/04/19 Lorazepam [Ativan 1 mg Tablet] 1 mg PO Q6 11/04/19 Morphine Sulfate [Morphine Sulfate ER] 45 mg PO Q6 11/04/19 Ondansetron [Zofran Odt 4 mg Tablet] 8 mg PO Q8HP PRN 11/04/19 Promethazine HCl [Phenergan 25 mg Tablet] 25 mg PO Q6HP PRN 11/04/19 Vortioxetine Hydrobromide [Trintellix] 10 mg PO QHS 11/04/19 Allergies/Adverse Reactions: cefaclor [From Ceclor] Allergy (Verified 03/06/19 08:23) Physical Exam Vital Signs: Temp Pulse Resp BP Pulse Ox 97.5 F 86 18 94/54 L 100 11/05/19 07:57 11/05/19 07:57 11/05/19 07:57 11/05/19 07:57 11/05/19 07:57 Intake & Output 11/04/19 11/05/19 11/06/19 06:59 06:59 06:59 Intake Total 1000 Output Total 275 Balance 725 Weight 70.3 kg Results Laboratory Results: 11/04/19 20:21 11/04/19 20:21 11/04/19 11/04/19 11/04/19 20:21 20:21 22:35 WBC 8.2 RBC 2.67 L Hgb 8.4 L Hct 24.4 L MCV 92 MCH 31.5 MCHC 34.4 RDW 14.0 Plt Count 480 H Seg Neutrophils % 75.5 Sodium 136.1 L Potassium 3.6 Chloride 102 Carbon Dioxide 29 Anion Gap 5 BUN 11 Creatinine 0.64 Est GFR ( Amer) > 60 Glucose 91 Calcium 8.5 Total Bilirubin 0.4 AST 19 Alkaline Phosphatase 96 Total Protein 5.8 L Albumin 2.9 L Urine Color YELLOW Urine Appearance SLIGHTLY-CLOUDY Urine pH 6.0 Ur Specific [place] 1.014 Urine Protein NEGATIVE Urine Glucose (UA) NEGATIVE Urine Ketones NEGATIVE Urine Blood SMALL H Urine Nitrite NEGATIVE Ur Leukocyte Esterase SMALL H Urine WBC (Auto) 5 Urine RBC (Auto) 6 Assessment & Plan - Diagnosis (1) Rectal pain Is this a current diagnosis for this admission?: Yes Plan: Chronic since dx, I added back her MSSR, cont IV dilaudid for breakthru pain, I will manage her pain control (2) Anemia Qualifiers: Anemia type: iron deficiency Iron deficiency anemia type: chronic blood loss Qualified Code(s): D50.0 - Iron deficiency anemia secondary to blood loss (chronic) Is this a current diagnosis for this admission?: Yes Plan: Likely related to recent surgery, hb 8 range currently, if falls <7 would tr ansfuse (3) Infection of perineal wound Is this a current diagnosis for this admission?: Yes Plan: Managed by surgery, will follow (4) Colorectal cancer Is this a current diagnosis for this admission?: Yes Plan: Will follow up as outpt, she is currently cancer free post surgery. No further adjuvant therapy planned. - Time Time Spent: 50 to 70 Minutes
--- NOTE | 2019-11-05 14:22 | RADIOLOGY REPORT (SQ) ---
EXAM DESCRIPTION: CT ABD/PELVIS WITH IV ORAL IMAGES COMPLETED DATE/TIME: 11/05/2019 2:05 pm REASON FOR STUDY: perineal infection s/p APR for rectal cancer COMPARISON: 03/16/2019 TECHNIQUE: CT scan of the abdomen and pelvis performed with intravenous and oral contrast using jed yuki scanning technique with dynamic intravenous contrast injection. Images reviewed with lung, soft t issue, and bone windows. Reconstructed coronal and sagittal MPR images reviewed. Delayed images for e valuation of the urinary system also acquired. All images stored on PACS. All CT scanners at this facility use dose modulation, iterative reconstruction, and/or weight based d osing when appropriate to reduce radiation dose to as low as reasonably achievable (ALARA). [facility]: Dose Right [facility]: CareDose [facility]: Dose Right [facility]: Teradose 4D [facility]: Lokalite CONTRAST TYPE AND DOSE: contrast/concentration: Isovue 350.00 mg/ml; Total Contrast Delivered: 80.0 ml; Total Saline Delivered: 68.0 ml RENAL FUNCTION: GFR > 60. RADIATION DOSE: CT Rad equipment meets quality standard of care and radiation dose reduction techniq ues were employed. CTDIvol: 5.9 mGy. DLP: 618 mGy-cm. . LIMITATIONS: None. FINDINGS: LOWER CHEST: No significant findings. No nodules or infiltrates. LIVER: Normal size. No masses. No dilated ducts. SPLEEN: Normal size. No focal lesions. PANCREAS: No masses. No significant calcifications. No adjacent inflammation or peripancreatic fluid collections. Pancreatic duct not dilated. GALLBLADDER: No identified stones by CT criteria. No inflammatory changes to suggest cholecystitis. ADRENAL GLANDS: No significant masses or asymmetry. RIGHT KIDNEY AND URETER: No solid masses. Punctate renal calculi. No hydronephrosis or hydrourete r. LEFT KIDNEY AND URETER: No solid masses. Punctate renal calculi. No hydronephrosis or hydroureter . AORTA AND VESSELS: No aneurysm. No dissection. Renal arteries, SMA, celiac without stenosis. RETROPERITONEUM: No retroperitoneal adenopathy, hemorrhage or masses. BOWEL AND PERITONEAL CAVITY: Status post rectal resection and diverting colostomy left lower quadrant . No evidence of abscess or obstruction. APPENDIX: Not visualized. PELVIS: No significant masses. Normal bladder. No free fluid. ABDOMINAL WALL: See above. BONES: No significant or acute findings. OTHER: No other significant finding. IMPRESSION: Expected postsurgical changes. No evidence of abscess or other postop complication. TECHNICAL DOCUMENTATION: JOB ID: [id number] Quality ID # [id number]: Final reports with documentation of one or more dose reduction techniques (e.g., Au tomated exposure control, adjustment of the mA and/or kV according to patient size, use of iterative reconstruction technique) 2010 [employer]- All Rights Reserved Reading location - IP/workstation name: [email or web address]
[2019-11-05] MEDS ORDERED: HYDROMORPHONE HCL INJ/PF 2 MG/ML AMPULE IV PRN (14:44)
--- NOTE | 2019-11-05 14:45 | RADIOLOGY REPORT (SQ) ---
EXAM DESCRIPTION: INJECT VENOUS ACCESS DEVICE IMAGES COMPLETED DATE/TIME: 11/05/2019 2:25 pm REASON FOR STUDY: port check r/t abnormal access COMPARISON: Port placement images from 03/19/2019 FLUOROSCOPY TIME: 18 seconds of fluoroscopy was used. 3 images saved to PACS. TECHNIQUE: Fluoroscopic guided injection of non-ionic contrast through an existing port a catheter. LIMITATIONS: None. PROCEDURE: The patient was brought into the fluoroscopic room and placed supine on the table. The zayda lowery's port access site was prepped and draped in a sterile fashion. The port was the accessed by [facility] radiological nurse. The catheter was flushed with sterile saline, which required some effort to in ject. Blood could be aspirated from the port. The catheter was then injected with 10 ml of non-ioni c contrast. A series of fluoroscopic images demonstrate no extravasation from the port well. There is evidence of mild fibrin sheath formation at the tip of the catheter restricting flow. The tip of the catheter is at the origin of the left subclavian vein and may have retracted a few cm from when it w as placed. IMPRESSION: PATENT PORT A CATHETER WITH EVIDENCE OF MILD FLOW RESTRICTING FIBRIN SHEATH. COMMENT: Quality ID [id number]: Final reports for procedures using fluoroscopy that document radiation exp osure indices, or exposure time and number of fluorographic images (if radiation exposure indices are not available) TECHNICAL DOCUMENTATION: JOB ID: [id number] 2010 [employer]- All Rights Reserved Reading location - IP/workstation name: [email or web address] [email or web address]
[2019-11-05] MEDS: MORPHINE SULFATE SR 15 MG TABLET PO SCH ×2 (14:54→21:18)
[2019-11-05] MEDS ORDERED: MORPHINE SULFATE SR 15 MG TABLET PO SCH (18:00)
[2019-11-06] MEDS: HYDROMORPHONE HCL INJ/PF 2 MG/ML AMPULE IV PRN ×3 (01:15→21:46)
[2019-11-06] MEDS: MORPHINE SULFATE SR 15 MG TABLET PO SCH ×4 (03:05→21:58)
--- NOTE | 2019-11-06 07:40 | PDOC PROGRESS REPORT ---
Subjective Progress Note for:: 11/06/19 Subjective:: 34-year-old female with a perineal wound infection status post abdominal perineal resection at [facility] for rectal cancer. The patient reports that her pain is controlled. She reports continued drainage from the wound overnight. She denies fevers, chills, chest pain, shortness of breath, nausea, vomiting, dizziness, orthostasis. Reason For Visit: KEILY - ABSCESS,COLO-RECTAL CANCER, PAIN MANAGEMENT Physical Exam Vital Signs: Temp Pulse Resp BP Pulse Ox 97.4 F 87 17 98/60 L 100 11/06/19 05:55 11/06/19 05:55 11/06/19 05:55 11/06/19 05:55 11/06/19 05:55 Intake & Output 11/05/19 11/06/19 11/07/19 06:59 06:59 06:59 Intake Total 1000 1720 Output Total 275 Balance 725 1720 Weight 70.3 kg 70.8 kg Exam: General appearance: PRESENT: no acute distress, cooperative Head exam: PRESENT: atraumatic, normocephalic Eye exam: PRESENT: EOMI, PERRLA. ABSENT: scleral icterus Mouth exam: PRESENT: moist, neck supple Neck exam: ABSENT: meningismus, tenderness, thyromegaly, tracheal deviation Respiratory exam: PRESENT: unlabored. ABSENT: chest wall tenderness, tachypnea, wheezes Cardiovascular exam: ABSENT: tachycardia Vascular exam: ABSENT: pallor GI/Abdominal exam: PRESENT: soft, other - Left lower quadrant colostomy is pink and productive. ABSENT: distended, tenderness Rectal exam: PRESENT: other - Perineal incision with a small opening posteriorly. There is a small amount of drainage. There is minimal erythema. Extremities exam: ABSENT: clubbing Musculoskeletal exam: ABSENT: deformity Neurological exam: PRESENT: alert, awake, oriented to person, oriented to place, oriented to time, oriented to situation, CN II-XII grossly intact. ABSENT: motor sensory deficit Psychiatric exam: PRESENT: anxious Focused psych exam: ABSENT: delusional Skin exam: ABSENT: cyanosis, erythema, jaundice Results Laboratory Results: 11/04/19 20:21 11/04/19 20:21 Impressions: Abdomen/Pelvis CT 11/05/19 00:00 IMPRESSION: Expected postsurgical changes. No evidence of abscess or other postop complication. Venous Access Device Injection 11/05/19 00:00 IMPRESSION: PATENT PORT A CATHETER WITH EVIDENCE OF MILD FLOW RESTRICTING FIBRIN SHEATH. Assessment & Plan - Diagnosis (1) Dehiscence of perineal wound Is this a current diagnosis for this admission?: Yes (2) Infection of perineal wound Is this a current diagnosis for this admission?: Yes - Plan Summary Plan Summary: 34-year-old female with a perineal wound infection after APR at [facility]. CT scan has been reviewed. She has a subcutaneous abscess, without obvious extension into the pelvis. Plan for exploration and washout of the perineal wound in the OR today. Continue antibiotics. Continue with supportive care. The plan has been discussed with the patient at length, she is in agreement with the treatment plan. Risks/benefits discussed, informed consent obtained, and all questions answered.
[2019-11-06] MEDS ORDERED: MIDAZOLAM 2 MG/2 ML INJ ONE (10:09)
[2019-11-06] MEDS ORDERED: PROPOFOL INJ 200 MG/20 ML VIAL IV ONE (10:09)
[2019-11-06] MEDS ORDERED: FENTANYL CITRATE INJ/PF 100 MCG/2 ML AMPUL ONE (10:09)
[2019-11-06] MEDS ORDERED: HYDROMORPHONE HCL INJ/PF 2 MG/ML AMPULE ONE (10:09)
[2019-11-06] MEDS ORDERED: ONDANSETRON HCL INJ/PF 4 MG/2 ML SDV ONE (10:19)
[2019-11-06] MEDS ORDERED: DEXAMETHASONE SOD PHOSPHATE INJ 4 MG/1 ML VIAL ONE (10:19)
[2019-11-06] MEDS: DOXYCYCLINE HYCLATE 100 MG in DEXTROSE 5%-WATER 250 ML IV SCH ×2 (10:40→21:47)
[2019-11-06] MEDS ORDERED: BUPIVACAINE HCL 0.25 % INJ/PF (2.5 MG/1 ML) 30 ML VIAL ONE (11:25)
[2019-11-06] MEDS ORDERED: PROMETHAZINE HCL INJ 25 MG/1 ML VIAL IV PRN (11:57)
[2019-11-06] MEDS ORDERED: FENTANYL CITRATE INJ/PF 100 MCG/2 ML AMPUL IV PRN ×3 (11:57)
[2019-11-06] MEDS ORDERED: DIPHENHYDRAMINE HCL 50 MG/ML VIAL IV PRN (11:57)
[2019-11-06] MEDS ORDERED: ONDANSETRON HCL INJ/PF 4 MG/2 ML SDV IV PRN (11:57)
[2019-11-06] MEDS ORDERED: MEPERIDINE HCL/PF INJ 25 MG/1 ML DISP.SYRIN IV PRN (11:57)
[2019-11-06] MEDS ORDERED: MORPHINE SULFATE 10 MG/ML INJ IV PRN (11:57)
--- NOTE | 2019-11-06 12:21 | Operative Report ---
Nonrecallable Operative Report DATE OF SURGERY: 11/06/19 PREOPERATIVE DIAGNOSIS: Pelvic abscess, status post APR POSTOPERATIVE DIAGNOSIS: Same as above OPERATION: Incision and drainage of a large pelvic abscess SURGEON: JUAN SHELTON 1ST PHOTOGRAPHIC EQUIPMENT ASSEMBLER: YANA SHAH ANESTHESIA: GA TISSUE REMOVED OR ALTERED: None COMPLICATIONS: None apparent ESTIMATED BLOOD LOSS: Minimal PROCEDURE: Drains/implants: Kerlix soaked in Betadine. Procedure in detail: After informed consent was obtained, the patient was brought into the operating room and laid in the lithotomy position. The area of the perineum was prepped and draped in a normal sterile fashion. The surgical incision at the rectum was opened fully. There was a large amount of purulent material within the subcutaneous tissues. The muscular pelvic floor appeared to be generally intact. The vagina was examined. The posterior vaginal repair also appeared to be intact. After the wound was completely laid open, it was irrigated copiously. Next, the wound was packed with a Kerlix, soaked in Betadine. A dressing was placed, and the procedure was concluded. All sponge, instrument, and needle counts were correct x2. Please note that the wound measured approximately 6 cm long x 2 cm wide x 8 cm deep. Condition: Stable. Yana Shah PA-C was scrubbed and present the entirety of the procedure. She assisted with all portions of the procedure including opening of the perineal incision, washing of the abscess cavity, placement of the dressing.
[2019-11-06] MEDS: ALPRAZOLAM 0.5 MG TABLET PO PRN (15:30)
[2019-11-06] MEDS: ZOLPIDEM TARTRATE 5 MG TABLET PO PRN (21:45)
[2019-11-07] MEDS: ALPRAZOLAM 0.5 MG TABLET PO PRN ×2 (01:40→09:54)
[2019-11-07] MEDS: MORPHINE SULFATE SR 15 MG TABLET PO SCH ×3 (03:00→15:44)
--- NOTE | 2019-11-07 09:13 | PDOC PROGRESS REPORT ---
Subjective Progress Note for:: 11/07/19 Subjective:: pain seems to be controlled on current regimen, nursing tells me Dr. Siegel planning on wound vac placement today Reason For Visit: KEILY - ABSCESS,COLO-RECTAL CANCER, PAIN MANAGEMENT Physical Exam Vital Signs: Temp Pulse Resp BP Pulse Ox 97.9 F 81 17 96/53 L 100 11/07/19 07:26 11/07/19 07:26 11/07/19 07:26 11/07/19 07:26 11/07/19 07:26 Intake & Output 11/06/19 11/07/19 11/08/19 06:59 06:59 06:59 Intake Total 1720 2055 Output Total 125 Balance 1720 1930 Weight 70.8 kg 73.1 kg Results Laboratory Results: 11/04/19 20:21 11/04/19 20:21 Impressions: Abdomen/Pelvis CT 11/05/19 00:00 IMPRESSION: Expected postsurgical changes. No evidence of abscess or other pos top complication. Venous Access Device Injection 11/05/19 00:00 IMPRESSION: PATENT PORT A CATHETER WITH EVIDENCE OF MILD FLOW RESTRICTING FIBRIN SHEATH. Assessment & Plan - Diagnosis (1) Rectal pain Is this a current diagnosis for this admission?: Yes Plan: cont current regimen (2) Anemia Qualifiers: Anemia type: iron deficiency Iron deficiency anemia type: chronic blood loss Qualified Code(s): D50.0 - Iron deficiency anemia secondary to blood loss (chronic) Is this a current diagnosis for this admission?: Yes Plan: last hb was stable, will f/u as outpt (3) Infection of perineal wound Is this a current diagnosis for this admission?: Yes Plan: s.p I/D and now wound vac placement pending (4) Colorectal cancer Is this a current diagnosis for this admission?: Yes Plan: s/p surgery now pt is cancer free, will f.u as outpt - Time Time Spent with patient: 15-24 minutes
[2019-11-07] MEDS: DOXYCYCLINE HYCLATE 100 MG in DEXTROSE 5%-WATER 250 ML IV SCH (09:40)
[2019-11-07] MEDS: HYDROMORPHONE HCL INJ/PF 2 MG/ML AMPULE IV PRN (09:51)
[2019-11-07] MEDS ORDERED: HYDROMORPHONE HCL INJ/PF 2 MG/ML AMPULE IV ONE (13:00)
--- NOTE | 2019-11-07 14:01 | PDOC PROGRESS REPORT ---
Subjective Progress Note for:: 11/07/19 Reason For Visit: KEILY - ABSCESS,COLO-RECTAL CANCER, PAIN MANAGEMENT Physical Exam Vital Signs: Temp Pulse Resp BP Pulse Ox 97.9 F 81 17 96/53 L 100 11/07/19 07:26 11/07/19 07:26 11/07/19 07:26 11/07/19 07:26 11/07/19 07:26 Intake & Output 11/06/19 11/07/19 11/08/19 06:59 06:59 06:59 Intake Total 1720 2055 250 Output Total 125 Balance 1720 1930 250 Weight 70.8 kg 73.1 kg Results Laboratory Results: 11/04/19 20:21 11/04/19 20:21 Impressions: Abdomen/Pelvis CT 11/05/19 00:00 IMPRESSION: Expected postsurgical changes. No evidence of abscess or other postop complication. Venous Access Device Injection 11/05/19 00:00 IMPRESSION: PATENT PORT A CATHETER WITH EVIDENCE OF MILD FLOW RESTRICTING FIBRIN SHEATH. Assessment & Plan - Diagnosis (1) Dehiscence of perineal wound Is this a current diagnosis for this admission?: Yes (2) Infection of perineal wound Is this a current diagnosis for this admission?: Yes - Plan Summary Plan Summary: 34-year-old female with a perineal wound infection after APR at [facility]. She is status post I&D of a large pelvic abscess. I have removed her packing at the bedside today. The abscess cavity is much strip cleaner today. Plan for home wound VAC and discharge soon. Continue antibiotics. Continue with supportive care.
--- NOTE | 2019-11-07 14:05 | Operative Report ---
Nonrecallable Operative Report DATE OF SURGERY: 11/07/19 PREOPERATIVE DIAGNOSIS: Large perineal abscess cavity POSTOPERATIVE DIAGNOSIS: Same as above, 6 cm long, by 2 cm wide, by 8 cm deep. OPERATION: Placement of negative pressure wound management system. Wound measures 6 cm x 2 cm x 8 cm. SURGEON: JAUN SHELTON ANESTHESIA: Other - None TISSUE REMOVED OR ALTERED: None COMPLICATIONS: None apparent ESTIMATED BLOOD LOSS: None PROCEDURE: Drain/implant: Small wound VAC sponge, cut to size. Procedure in detail: After informed consent was obtained from the patient, she was laid in the right lateral decubitus position in the hospital room. The wound, which had previously been inspected and packing removed, was irrigated and cleaned. A small wound VAC sponge was then trimmed to an appropriate size, and inserted into the cavity. The occlusive dressing was placed over the sponge. The vacuum disc was attached to the occlusive dressing, and suction was applied. Good seal was noted. The procedure was then concluded. The patient tolerated the procedure very well, suffering no complications. Condition: Stable.
[2019-11-07 15:11] VITALS: BP 90/49
--- NOTE | 2019-11-07 15:16 | PDOC DISCHARGE SUMMARY ---
General - Admit/Disc Date/PCP Admission Date/Primary Care Provider: 11/04/19 18:46 BROWN MOLINA MD Discharge Date: 11/07/19 - Discharge Diagnosis Final Diagnosis: perineal abscess, s/p APR - Assessment Summary: This is a 34-year-old female with a history of locally advanced rectal cancer. She is status post APR. This was done at [facility]. She presented to Dr. Molina's office with drainage from her perineal incision. She was admitted to the hospital, started on intravenous antibiotics, and a CT scan was obtained. The patient was found to have a large abscess at the perineal surgical site. The patient was then taken to the operating room where incision and drainage was performed. The patient did well from the operation. On postoperative day #1, the wound appeared relatively clean, therefore a wound VAC was placed. At this time the patient has reached maximal hospital benefit and was fit for discharge. - Additional Information Resuscitation Status: Full Code Discharge Diet: As Tolerated Discharge Activity: Balance Activity w/Rest, No Lifting Over 10 Pounds, No Lifting/Push/Pulling Referrals: GO DENTON MD [ACTIVE STAFF] - Prescriptions: Doxycycline Hyclate 100 mg PO BID #20 tablet.dr Prince Medications: Scopolamine 1 each TD Q3DAYS 03/16/19 Zolpidem Tartrate [Ambien] 10 mg PO QHS 03/16/19 Estradiol 0.05 mg PO DAILY 11/04/19 Hydromorphone HCl [Dilaudid] 4 mg PO Q6HP PRN 11/04/19 Lorazepam [Ativan 1 mg Tablet] 1 mg PO Q6 11/04/19 Morphine Sulfate [Morphine Sulfate ER] 45 mg PO Q6 11/04/19 Ondansetron [Zofran Odt 4 mg Tablet] 8 mg PO Q8HP PRN 11/04/19 Promethazine HCl [Phenergan 25 mg Tablet] 25 mg PO Q6HP PRN 11/04/19 Vortioxetine Hydrobromide [Trintellix] 10 mg PO QHS 11/04/19 Doxycycline Hyclate 100 mg PO BID #20 tablet. 11/07/19 Additional Information: Discharge home. Diet as tolerated. Activity: Nonstrenuous. Follow-up with [facility] (Dr. Siegel) in 7 to 10 days. Home health for wound VAC changes. History of Present Illiness History of Present Illness: ABRAHAM BUSTOS is a 34 year old female seen in consultation at the request of Dr. Molina. The patient is well-known to me. She has a history of locally advanced rectal cancer. She was seen at [facility], where an abdominoperineal resection was performed. The patient reports a 2 to 3-day history of pain, swelling, and now drainage at her perineal incision. She denies fevers or chills. She also denies chest pain, shortness of breath, nausea, vomiting, melanotic stool, hematemesis, blurry vision, dizziness, orthostasis, headache, fatigue, or malaise. Her pain does not radiate. She reports it is a dull, throbbing pain. She rates it 5 out of 10. Nothing makes her pain better. Palpation and pressure make it worse. Physical Exam Vital Signs: Temp Pulse Resp BP Pulse Ox 97.8 F 88 17 90/54 L 100 11/07/19 12:06 11/07/19 14:00 11/07/19 12:06 11/07/19 12:06 11/07/19 12:06 Intake & Output 11/06/19 11/07/19 11/08/19 06:59 06:59 06:59 Intake Total 1720 5 370 Output Total 125 Balance 1720 1930 370 Weight 70.8 kg 73.1 kg Results Laboratory Results: WBC 8.2 10^3/uL (4.0-10.5) 11/04/19 20: RBC 2.67 10^6/uL (3.72-5.28) L 11/04/19 20: Hgb 8.4 g/dL (12.0-15.5) L 11/04/19 20: Hct 24.4 % (36.0-47.0) L 11/04/19 20:21 MCV 92 fl (80-97) 11/04/19: MCH 31.5 pg (27.0-33.4) 11/04/19 20: MCHC 34.4 g/dL (32.0-36.0) 11/04/19 20: RDW 14.0 % (11.5-14.0) 11/04/19 20:21 Plt Count 480 10^3/uL (150-450) H 11/04/19 20:21 Lymph % (Auto) 12.5 % (13-45) L 11/04/19 20: [place] % (Auto) 9.5 % (3-13) 11/04/19 20:21 Eos % (Auto) 2.2 % (0-6) 11/04/19 20: Baso % (Auto) 0.3 % (0-2) 11/04/19 20: Absolute Neuts (auto) 6.2 10^3/uL (1.7-8.2) 11/04/19 20: Absolute Lymphs (auto) 1.0 10^3/uL (0.5-4.7) 11/04/19: Absolute Monos (auto) 0.8 10^3/uL (0.1-1.4) 11/04/19 20: Absolute Eos (auto) 0.2 10^3/uL (0.0-0.6) 11/04/19 20: Absolute Basos (auto) 0.0 10^3/uL (0.0-0.2) 11/04/19 20: Seg Neutrophils % 75.5 % (42-78) 11/04/19 20: Sodium 136.1 mmol/L (137-145) L 11/04/19 20:21 Potassium 3.6 mmol/L (3.6-5.0) 11/04/19 20: Chloride 102 mmol/L (98-107) 11/04/19 20: Carbon Dioxide 29 mmol/L (22-30) 11/04/19 20:21 Anion Gap 5 (5-19) 11/04/19 20:21 BUN 11 mg/dL (7-20) 11/04/19 20:21 Creatinine 0.64 mg/dL (0.52-1.25) 11/04/19 20: Est GFR ( Amer) > 60 (>60) 11/04/19 20:21 Est GFR (MDRD) Non-Af > 60 (>60) 11/04/19 20:21 Glucose 91 mg/dL (75-110) 11/04/19 20:21 Calcium 8.5 mg/dL (8.4-10.2) 11/04/19 20:21 Total Bilirubin 0.4 mg/dL (0.2-1.3) 11/04/19 20:21 Direct Bilirubin 0.2 mg/dL (0.0-0.4) 11/04/19 20:21 Neonat Total Bilirubin Not Reportable 11/04/19 20:21 Neonat Direct Bilirubin Not Reportable 11/04/19 20:21 Neonat Indirect Bili Not Reportable 11/04/19 20:21 AST 19 U/L (14-36) 11/04/19 20:21 ALT 18 U/L (<35) 11/04/19 20:21 Alkaline Phosphatase 96 U/L (38-126) 11/04/19 20:21 Total Protein 5.8 g/dL (6.3-8.2) L 11/04/19 20:21 Albumin 2.9 g/dL (3.5-5.0) L 11/04/19 20:21 Urine Color YELLOW 11/04/19 22:35 Urine Appearance SLIGHTLY-CLOUDY 11/04/19 22:35 Urine pH 6.0 (5.0-9.0) 11/04/19 22:35 Ur Specific [place] 1.014 11/04/19 22:35 Urine Protein NEGATIVE mg/dL (NEGATIVE) 11/04/19 22:35 Urine Glucose (UA) NEGATIVE mg/dL (NEGATIVE) 11/04/19 22:35 Urine Ketones NEGATIVE mg/dL (NEGATIVE) 11/04/19 22:35 Urine Blood SMALL (NEGATIVE) H 11/04/19 22:35 Urine Nitrite NEGATIVE (NEGATIVE) 11/04/19 22:35 Urine Bilirubin NEGATIVE (NEGATIVE) 11/04/19 22:35 Urine Urobilinogen NEGATIVE mg/dL (<2.0) 11/04/19 22:35 Ur Leukocyte Esterase SMALL (NEGATIVE) H 11/04/19 22:35 Urine WBC (Auto) 5 /HPF 11/04/19 22:35 Urine RBC (Auto) 6 /HPF 11/04/19 22:35 Urine Mucus (Auto) MOD /LPF 11/04/19 22:35 Urine Ascorbic Acid NEGATIVE (NEGATIVE) 11/04/19 22:35 SARS-CoV-2 (PCR) NEGATIVE (NEGATIVE) 11/05/19 18:40 Impressions: Abdomen/Pelvis CT 11/05/19 00:00 IMPRESSION: Expected postsurgical changes. No evidence of abscess or other postop complication. Venous Access Device Injection 11/05/19 00:00 IMPRESSION: PATENT PORT A CATHETER WITH EVIDENCE OF MILD FLOW RESTRICTING FIBRIN SHEATH.
== END 2019-11-07 16:41 | disposition home health service (06) | DRG 857 ==
LOC: 2N 18:46 → 4S 11-05 15:44
PROVIDERS: ADMIT Obstetrics & Gynecology; ATTEND Obstetrics & Gynecology
PROC: 0J9C3ZX Drainage of Pelvic Region Subcutaneous Tissue and Fascia, Percutaneous Approach, Diagnostic (ICD-10-PCS; 2019-11-06)
PROC: 0WH Anatomical Regions, General, Insertion (ICD-10-PCS; principal; 2019-11-07)
DX: K68.11 Postprocedural retroperitoneal abscess (principal); T81.31XA Disruption of external operation (surgical) wound, not elsewhere classified, initial encounter; C20 Malignant neoplasm of rectum; T81.49XA Infection following a procedure, other surgical site, initial encounter; Y83.6 Removal of other organ (partial) (total) as the cause of abnormal reaction of the patient, or of later complication, without mention of misadventure at the time of the procedure; F32.9 Major depressive disorder, single episode, unspecified; F43.10 Post-traumatic stress disorder, unspecified; D50.0 Iron deficiency anemia secondary to blood loss (chronic); Z79.899 Other long term (current) drug therapy; Z88.1 Allergy status to other antibiotic agents
CPT/HCPCS: 36415; 36598; 400; 74177; 80053; 81001; 85025; 87635; J0744; J1100; J1170; J1642; J2250; J2405; J2704; J3010; J3490; J7030; J7060

== ENCOUNTER 2020-04-27 11:00 | Day surgery (SDC) | payer OTHER ==
[~2020-04-27 11:00] MED LIST changes: -GENTAMICIN SULFATE 80 MG in DEXTROSE 5%-WATER 100 ML IV PRN; -LIDOCAINE 0.5% INJ-PF (5 MG/ML) 50 ML SDV SUBCUT PRN; +PROPOFOL INJ 200 MG/20 ML VIAL IV ONE
[2020-04-27] MEDS ORDERED: PROPOFOL INJ 200 MG/20 ML VIAL IV ONE (12:58)
--- NOTE | 2020-04-27 13:12 | Operative Report ---
Nonrecallable Operative Report DATE OF SURGERY: 04/27/20 PREOPERATIVE DIAGNOSIS: h/o rectal cancer POSTOPERATIVE DIAGNOSIS: 1. h/o rectal cancer. 2. cecal polyp OPERATION: 1. Colonoscopy to the cecum, through the stoma. 2. Hot biopsy of small polyp within the cecum. SURGEON: JUAN SHELTON ANESTHESIA: LMAC TISSUE REMOVED OR ALTERED: Hot biopsy of cecal polyp COMPLICATIONS: None apparent ESTIMATED BLOOD LOSS: Minimal PROCEDURE: Procedure in detail: After informed consent was obtained, the patient was nghia t into the endoscopy suite and laid in the supine position. The endoscope was inserted into the patient's left lower quadrant colostomy. The scope was advanced to the descending colon, across the transverse colon, down the ascending colon, and into the cecum. The ileocecal valve and appendiceal orifice were identified. Within the cecum there was a small, diminutive polyp. It was removed in its entirety via hot biopsy forcep. The scope was then withdrawn, circumferentially noting the mucosa. The prep was excellent. The scope was withdrawn past the ascending colon, transverse colon, down the descending colon, and out the colostomy. The procedure was then at this time concluded. All sponge, instrument, and needle counts were correct x2. Condition: Stable.
--- NOTE | 2020-04-27 13:13 | Discharge Summary ---
Discharge Summary (SDC) - Discharge Final Diagnosis: h/o rectal cancer, cecal polyp Date of Surgery: 04/27/20 Discharge Date: 04/27/20 Condition: Stable Forms: EU Anesthesia D/C Instructions, Discharge POC-Surgical Service Treatment or Instructions: NO DRIVING TODAY, INCREASE DIET TOLERATED, NO ACTIVITIES THAT REQUIRE CONCENTRATION, NO IMPROTANT DECISION MAKING , KEEP SCHEDULED APPOINTMENTS, CALL [facility] FOR ANY CONCERNS Discharge home. Diet as tolerated. Activity: No strenuous activity. Follow-up with [facility] in 7 to 10 days. Referrals: JUAN SHELTON MD [ACTIVE STAFF] - Discharge Diet: As Tolerated Respiratory Treatments at Home: Deep Breathing/Coughing, Incentive Spirometer Discharge Activity: Activity As Tolerated, Balance Activity w/Rest, No Driving Home Care Assistance: None Needed Report the Following to Your Physician Immediately: Shortness of Breath, Nausea, Vomiting, Increase in Pain, Unusual Bleeding, IV Site Infection Signs
[2020-04-27 13:39] VITALS: BP 109/84
== END 2020-04-27 13:56 | disposition home or self-care (01) ==
LOC: END 11:00
PROVIDERS: ATTEND Surgery
DX: D12.0 Benign neoplasm of cecum (principal); Z85.048 Personal history of other malignant neoplasm of rectum, rectosigmoid junction, and anus; Z85.038 Personal history of other malignant neoplasm of large intestine; Z93.3 Colostomy status; Z87.891 Personal history of nicotine dependence; Z03.818 Encounter for observation for suspected exposure to other biological agents ruled out; Z90.710 Acquired absence of both cervix and uterus; Z85.44 Personal history of malignant neoplasm of other female genital organs
CPT/HCPCS: 44389; 88305 ×2; U0003; J2704; C9803; 87635

== ENCOUNTER → 2020-06-09 | Outpatient (CLI) | payer OTHER ==
--- NOTE | 2020-06-09 13:54 | RADIOLOGY REPORT (SQ) ---
EXAM DESCRIPTION: CT CHEST WITH; CT ABD/PELVIS WITH IV ORAL IMAGES COMPLETED DATE/TIME: 06/09/2020 10:28 am REASON FOR STUDY: RECTAL CA C20 MALIGNANT NEOPLASM OF RECTUM CONTRAST TYPE AND DOSE: contrast/concentration: Isovue 350.00 mmol/ml; Total Contrast Delivered: 80. 0 ml; Total Saline Delivered: 43.0 ml RENAL FUNCTION: None required. The patient is less than 50 years old. COMPARISON: 06/19/2019 TECHNIQUE: CT scan of the chest performed using helical scanning technique with dynamic intravenous contrast injection. Images reviewed with lung, soft tissue and bone windows. Reconstructed coronal a nd sagittal MPR images reviewed. All images stored on PACS. All CT scanners at this facility use dose modulation, iterative reconstruction, and/or weight based d osing when appropriate to reduce radiation dose to as low as reasonably achievable (ALARA). [facility]: Dose Right [facility]: CareDose [facility]: Dose Right [facility]: Teradose 4D [facility]: Desktone RADIATION DOSE: CT Rad equipment meets quality standard of care and radiation dose reduction techniq ues were employed. CTDIvol: 4.9 - 6.6 mGy. DLP: 829 mGy-cm. . LIMITATIONS: None. FINDINGS: AXILLAE: No adenopathy. CHEST WALL: No masses. No subcutaneous air. LUNGS: No nodules or masses. No pneumothorax. No infiltrates. PLEURA: No effusions. No calcifications. THYROID: No masses or significant asymmetry. HILAR AND MEDIASTINAL STRUCTURES: No identified masses or abnormal nodes. AORTA AND GREAT VESSELS: No aneurysm. No dissection. PULMONARY ARTERIES: No identified pulmonary emboli. Study not optimized for the pulmonary arteries. HEART: No pericardial effusion. HARDWARE AND LIFELINES: None. BONES: Mild scoliosis. No osseous metastases. OTHER: No other significant finding. IMPRESSION: NORMAL CT OF THE CHEST WITH IV CONTRAST. COMPARISON: 11/05/2019 RADIATION DOSE: CT Rad equipment meets quality standard of care and radiation dose reduction techniq ues were employed. CTDIvol: 4.9 - 6.6 mGy. DLP: 829 mGy-cm. mGy. TECHNIQUE: CT scan of the abdomen and pelvis performed with intravenous and oral contrast using jed yuki scanning technique with dynamic intravenous contrast injection. Images reviewed with lung, soft tissue and bone windows. Reconstructed coronal and sagittal MPR images reviewed. Delayed images for evaluation of the urinary system also acquired and evaluated. All images stored on PACS. All CT scanners at this facility use dose modulation, iterative reconstruction, and/or weight based d osing when appropriate to reduce radiation dose to as low as reasonably achievable (ALARA). [facility]: Dose Right [facility]: SureCare [facility]: Dose Right [facility]: Teradose 4D [facility]: Desktone FINDINGS: LIVER: Normal size. No masses. No dilated ducts. SPLEEN: Normal size. No focal lesions. PANCREAS: No masses. No significant calcifications. No adjacent inflammation or peripancreatic flui d collections. Pancreatic duct not dilated. GALLBLADDER: No identified stones by CT criteria. No inflammatory changes to suggest cholecystitis. ADRENAL GLANDS: No significant masses or asymmetry. RIGHT KIDNEY AND URETER: No solid masses. No significant calcifications. No hydronephrosis or hyd roureter. LEFT KIDNEY AND URETER: No solid masses. No significant calcifications. No hydronephrosis or hydr oureter. AORTA AND VESSELS: No aneurysm. No dissection. Renal arteries, SMA, celiac without stenosis. RETROPERITONEUM: No retroperitoneal adenopathy, hemorrhage or masses. LARGE AND SMALL BOWEL: Left lower quadrant colostomy. No obvious bowel mass. APPENDIX: Not identified. ABDOMINAL WALL: No hernia or masses. PERITONEAL CAVITY: No free air. No free fluid. No peritoneal implants or masses. PELVIS: No mass or free fluid. Normal bladder. BONES: No significant or acute findings. OTHER: No other significant finding. IMPRESSION: Left lower quadrant colostomy. There is no evidence of metastatic disease in the abdome n or pelvis. TECHNICAL DOCUMENTATION: JOB ID: [id number] Quality ID # [id number]: Final reports with documentation of one or more dose reduction techniques (e.g., Au tomated exposure control, adjustment of the mA and/or kV according to patient size, use of iterative reconstruction technique) 2010 [employer]- All Rights Reserved Reading location - IP/workstation name: [email or web address]
== END ==
LOC: RAD 10:04
PROVIDERS: ATTEND Internal Medicine
DX: C20 Malignant neoplasm of rectum (principal); Z93.3 Colostomy status
CPT/HCPCS: 71260; 74177